=== PATIENT | female | born 1935 | race Caucasian/White ===

== ENCOUNTER → 2020-02-02 09:27 | Outpatient (BNVA) | payer MEDICARE, SELFPAY | PROVIDERS: PCP Hospitalist; Referring Provider Hospitalist; Visit Provider Surgery Vascular Surgery | DX: I83.11 Varicose veins of right lower extremity with inflammation (principal); I83.12 Varicose veins of left lower extremity with inflammation | CPT/HCPCS: 99213 ==

== ENCOUNTER 2020-03-21 13:35 | Outpatient (REF) | payer MEDICARE, SELFPAY | END 2020-03-21 13:36 | disposition home or self-care (01) | LOC: HO.HMGCLDS 13:35 | PROVIDERS: Visit Provider Internal Medicine | DX: Z20.828 Contact with and (suspected) exposure to other viral communicable diseases (principal) | CPT/HCPCS: C9803; U0003 ==

== ENCOUNTER 2020-04-19 10:14 | Outpatient (REF) | payer MEDICARE, SELFPAY ==
[2020-04-19 12:02] LABS: Hematocrit 42.9 % (37-47); Hemoglobin 14.1 g/dl (12.0-16.0); Mean Corpuscular HGB Conc 32.9 g/dl (31.0-35.0); Mean Corpuscular Hemoglobin 31.1 pg (27.0-33.0); Mean Corpuscular Volume 94.5 fL (80-98); Mean Platelet Volume 10.6 fL (9.4-12.3); Platelet Count 182 X10*3/uL (160-400); Red Blood Count 4.54 X10*6/uL (4.20-5.50); Red Cell Distribution Width 13.9 % (11.0-16.0); White Blood Count 5.9 X10*3/uL (4.8-10.8)
[2020-04-19 12:31] LABS: Anion Gap 15 (12-20); Blood Urea Nitrogen 21 mg/dL (9-16); Calcium 9.4 mg/dL (8.4-10.2); Carbon Dioxide 28 mmol/L (22-29); Chloride 102 mmol/L (96-108); Estimated Glomerular Filt Rate > 60; Glucose Random 87 mg/dL (60-115); Sodium 140 mmol/L (135-145)
== END 2020-04-19 10:15 | disposition home or self-care (01) ==
LOC: HO.LAB 10:14
PROVIDERS: PCP Hospitalist; Visit Provider Internal Medicine Cardiovascular Disease
DX: I50.30 Unspecified diastolic (congestive) heart failure (principal); I48.0 Paroxysmal atrial fibrillation
CPT/HCPCS: 36415; 80048; 85027; 93005; 99212

== ENCOUNTER 2020-10-21 10:32 | Outpatient (REF) | payer MEDICARE, SELFPAY ==
[2020-10-21 12:02] LABS: Hematocrit 40.2 % (37-47); Hemoglobin 13.1 g/dl (12.0-16.0); Mean Corpuscular HGB Conc 32.6 g/dl (31.0-35.0); Mean Corpuscular Hemoglobin 31.4 pg (27.0-33.0); Mean Corpuscular Volume 96.4 fL (80-98); Mean Platelet Volume 10.6 fL (9.4-12.3); Platelet Count 176 X10*3/uL (160-400); Red Blood Count 4.17 X10*6/uL (4.20-5.50); Red Cell Distribution Width 14.1 % (11.0-16.0); White Blood Count 4.8 X10*3/uL (4.8-10.8)
[2020-10-21 12:22] LABS: Anion Gap 10 (12-20); Blood Urea Nitrogen 24 mg/dL (9-16); Calcium 9.7 mg/dL (8.4-10.2); Carbon Dioxide 30 mmol/L (22-29); Chloride 104 mmol/L (96-108); Estimated Glomerular Filt Rate > 60; Glucose Random 66 mg/dL (60-115); Potassium 4.2 mmol/L (3.3-5.1); Sodium 140 mmol/L (135-145)
== END 2020-10-21 10:33 | disposition home or self-care (01) ==
LOC: HO.LAB 10:32
PROVIDERS: PCP Hospitalist; Referring Provider Hospitalist; Visit Provider Internal Medicine Cardiovascular Disease
DX: I48.0 Paroxysmal atrial fibrillation (principal); I50.30 Unspecified diastolic (congestive) heart failure
CPT/HCPCS: 36415; 80048; 85027; 93005; 99212

== ENCOUNTER → 2021-03-07 09:21 | Outpatient (REF) | payer MEDICARE, SELFPAY ==
--- NOTE | 2021-03-07 09:25 | CA_ITS ---
Transthoracic Echocardiogram Patient (Last, First, Middle): Mylene Zuniga A Gender: Female Date of : 1935 Age: 86 Procedure Date: 03/07/2021 Procedure Type: Transthoracic Echocardiogram Location: OP Height: 165.1 cm Weight: 61.24 kg BSA: 1.67 m2 Heart Rate: bpm BP: 130 / 78 mmHg Co Supervisor Grounds And Landscape: OCTAVIO/MIRELLA Referring MD: Raleigh Velazquez MD Media Librarian: Raleigh Velazquez MD Symptoms: I50.30 - Unspecified diastolic (congestive) heart failure Study Quality: Good ECG Rhythm: Sinus Conclusions: - 1. Normal LV systolic function with grade 2 diastolic dysfunction 2. Mild aortic and xkbz-qa-khuufxuy mitral regurgitation 3. Mildly elevated right ventricular systolic pressure 4. Moderately enlarged left atrium 5. No pericardial effusion Findings Left Ventricle Normal left ventricular size, thickness, and systolic function. The visually estimated ejection fraction is between 60-65%. Spectral Doppler is indicative of a pseudonormal filling pattern. E/E prime ratio is >15, consistent with elevated filling pressures. Evidence suggests grade II (moderate) diastolic dysfunction. There is mild septal asymmetric hypertrophy. Right Ventricle Mildly increased right ventricular cavity size. There is normal right ventricular systolic function. Atria The left atrium is moderately dilated. There is no evidence of interatrial shunt. The right atrium is likely dilated. Aortic Valve There is mild thickening of the aortic valve. There is no aortic valve stenosis. There is mild aortic valve regurgitation. Mitral Valve There is mild anterior and posterior mitral leaflet thickening. There is mild mitral annular calcification. There is mild to moderate mitral valve regurgitation. There is no mitral valve stenosis. Pulmonic Valve The pulmonic valve was not well visualized. Tricuspid Valve Likely normal tricuspid valve structure and function. There is mild tricuspid valve regurgitation. Mildly elevated right atrial pressure. Mild pulmonary hypertension is present. Great Vessels All visible segments of the aorta are normal in size. The pulmonary artery was not well visualized. Venous The inferior vena cava is mildly dilated and collapses less than 50% with inspiration. Pericardium/Pleural There is no evidence of pericardial effusion. Prior Study Comparison No significant change compared to prior study dated: 02/09/2018. Measurements 2D Linear Measurements IVSd: 1.28 0.6-0.9/0.6-1.0 cm LVIDd: 4.33 3.9-5.3/4.2-5.9 cm LVIDd Index: 2.59 2.4-3.2/2.2-3.1 cm/m2 LVIDs: 3.03 2.0-3.6 cm LVPWd: 0.71 0.7-1.1 cm Ao Root: 3.30 2.1-3.5 cm LA Diam: 3.60 2.7-3.8/3.0-4.0 cm LAIDs Index: 2.16 1.5-2.3 cm/m2 LV Mass: 178.35 67-162/88-224 g LV Mass Index: 106.80 43-95/49-115 g/m2 LVOT Diam: 2.10 3.0+(-)1.3 cm 2D Systolic Function EF 4C: 59.80 >55% EF 2C: 70.20 >55% EF BiP: 66.90 >55% Mitral Valve MV Pk E: 0.88 MV PK A: 0.61 MV Decel Time: 232.00 E/A: 1.40 E'Lateral: 7.83 E'Medial: 7.72 E/E' Med: 11.40 E/E' Lat: 11.20 PHT: 68.00 MVA PHT: 3.24 Decel [place]: 3.78 Aortic Valve AoV Pk Clemente: 1.14 AoV Mn Clemente: 0.81 AoV VTI: 0.32 AoV Pk Grad: 5.00 Aov Mn Grad: 3.00 DARRON Cont.VTI: 2.95 AI Pk Clement[place]: 4.74 AI [place]: 1.90 LVOT LVOT Pk Clement[place]: 0.92 LVOT Mn Clemente: 0.64 LVOT VTI: 0.27 LVOT Pk Grad: 3.00 LVOT Mn Grad: 2.00 LVOT Diam: 2.10 LVOT Area: 3.46 Diastolic Function MV Pk E: 0.88 MV Pk A: 0.61 E/A: 1.40 E'Medial: 7.72 E/E' Med: 11.40 E' Laterial: 7.83 E/E' Lat: 11.20 Right Ventricle TAPSE (mm): 2.64 TVS' Clemente: 10.30 Tricuspid Valve TR Pk Clement[place]: 2.96 TR Pk Grad: 35.00 RA Press: 8.00 RVSP: 43.00 Great Vessels Aorta Ao Root-2D: 3.30 2.0-3.7 cm Ao Asc: 3.40 2.1-3.4 cm Ao Arch: 3.70 Updated in Other Vendor System with Status of Final Raleigh Velazquez MD electronically signed on 03/07/2021 5:06:34 PM with status of Final
== END ==
LOC: HO.CARD 09:21
PROVIDERS: PCP Hospitalist; Visit Provider Internal Medicine Cardiovascular Disease
DX: I50.30 Unspecified diastolic (congestive) heart failure (principal)
CPT/HCPCS: 93306

== ENCOUNTER → 2021-05-14 10:21 | Outpatient (BNVA) | payer MEDICARE, MEDICAID, SELFPAY | PROVIDERS: PCP Hospitalist; Referring Provider Hospitalist; Visit Provider Internal Medicine Cardiovascular Disease | DX: I50.30 Unspecified diastolic (congestive) heart failure (principal); I48.0 Paroxysmal atrial fibrillation; R00.1 Bradycardia, unspecified | CPT/HCPCS: 93005; 99212 ==

== ENCOUNTER 2021-11-20 10:00 | Outpatient (REF) | payer MEDICARE, MEDICAID, SELFPAY ==
[2021-11-20 11:32] LABS: Hematocrit 41.4 % (37.0-47.0); Hemoglobin 13.5 g/dl (12.0-16.0); Mean Corpuscular HGB Conc 32.6 g/dl (31.0-35.0); Mean Corpuscular Hemoglobin 30.2 pg (27.0-33.0); Mean Corpuscular Volume 92.6 fL (80.0-98.0); Platelet Count 204 X10*3/uL (160-400); Red Blood Count 4.47 X10*6/uL (4.20-5.50); Red Cell Distribution Width 13.6 % (11.0-16.0); White Blood Count 5.1 X10*3/uL (4.8-10.8)
[2021-11-20 11:57] LABS: Anion Gap 13 (12-20); Blood Urea Nitrogen 23 mg/dL (9-16); Calcium 9.3 mg/dL (8.4-10.2); Carbon Dioxide 28 mmol/L (22-29); Chloride 104 mmol/L (96-108); Estimated Glomerular Filt Rate > 60; Glucose Random 67 mg/dL (60-115); Potassium 4.6 mmol/L (3.3-5.1); Sodium 140 mmol/L (135-145)
[2021-11-20 12:00] LABS: B Type Natriuretic Peptide 208 pg/mL (<100)
== END 2021-11-20 10:01 | disposition home or self-care (01) ==
LOC: HO.LAB 10:00
PROVIDERS: PCP Physician Assistant; Visit Provider Internal Medicine Cardiovascular Disease
DX: I48.0 Paroxysmal atrial fibrillation (principal); I50.30 Unspecified diastolic (congestive) heart failure
CPT/HCPCS: 36415; 80048; 83880; 85027; 93005; 99212

== ENCOUNTER → 2022-05-07 12:46 | Outpatient (REF) | payer MEDICARE, MEDICAID, SELFPAY ==
--- NOTE | 2022-05-07 12:49 | CA_ITS ---
Transthoracic Echocardiogram Patient (Last, First, Middle): Mylene Zuniga A Gender: Female Date of : 1935 Age: 87 Procedure Date: 05/07/2022 Procedure Type: Transthoracic Echocardiogram Location: OP Height: 165.1 cm Weight: 63.5 kg BSA: 1.70 m2 Heart Rate: bpm BP: 120 / 70 mmHg Technology Education Teacher: MIRELLA Referring MD: Raleigh Velazquez MD Symptoms: I50.30 - Unspecified diastolic (congestive) heart failure Study Quality: Adequate ECG Rhythm: Sinus Conclusions: - The left ventricular systolic function is normal. The calculated ejection fraction is 66% by biplane method. - The left atrium is severely dilated. - Trace to mild aortic regurgitation. - There is mild mitral valve regurgitation. - There is mild tricuspid valve regurgitation. - The inferior vena cava is dilated and collapses greater than 50% with inspiration. Findings Left Ventricle Normal left ventricular cavity size. There is normal left ventricular wall thickness. The left ventricular systolic function is normal. The calculated ejection fraction is 66% by biplane method. There is no evidence of regional wall motion abnormalities. E/E prime ratio is between 8 and 15 consistent with indeterminate filling pressures. Evidence suggests grade II (moderate) diastolic dysfunction. There is mild septal asymmetric hypertrophy. LV peak GLS -21.5%. Right Ventricle Normal right ventricular cavity size and systolic function. Atria The left atrium is severely dilated. The right atrium is normal in size. Aortic Valve There is a normal trileaflet aortic valve. There is mild calcification of the aortic valve. There is no aortic valve stenosis. Trace to mild aortic regurgitation. Mitral Valve The mitral valve appears normal. There is mild mitral valve regurgitation. There is no mitral valve stenosis. Pulmonic Valve The pulmonic valve is likely normal. Tricuspid Valve Normal tricuspid valve structure. There is mild tricuspid valve regurgitation. There is no evidence of pulmonary hypertension. Great Vessels The asc aorta and aortic arch are normal in size. Venous The inferior vena cava is dilated and collapses greater than 50% with inspiration. Pericardium/Pleural There is no evidence of pericardial effusion. Prior Study Comparison Changes noted compared to prior study dated: 03/07/2021. Increase in atrial size. Measurements 2D Linear Measurements IVSd: 1.23 0.6-0.9/0.6-1.0 cm LVIDd: 4.34 3.9-5.3/4.2-5.9 cm LVIDd Index: 2.55 2.4-3.2/2.2-3.1 cm/m2 LVIDs: 2.34 2.0-3.6 cm LVPWd: 0.75 0.7-1.1 cm LA Diam: 3.80 2.7-3.8/3.0-4.0 cm LAIDs Index: 2.24 1.5-2.3 cm/m2 LV Mass: 177.39 67-162/88-224 g LV Mass Index: 104.35 43-95/49-115 g/m2 LVOT Diam: 2.10 3.0+(-)1.3 cm 2D Systolic Function EF 4C: 67.70 >55% EF 2C: 62.90 >55% EF BiP: 66.40 >55% Mitral Valve MV Pk E: 0.84 MV PK A: 0.65 MV Decel Time: 239.00 E/A: 1.30 E'Lateral: 9.46 E'Medial: 6.31 E/E' Med: 13.20 E/E' Lat: 8.80 PHT: 70.00 MVA PHT: 3.14 Decel [place]: 3.49 Aortic Valve AoV Pk Clemente: 1.43 AoV Mn Clemente: 0.99 AoV VTI: 0.39 AoV Pk Grad: 8.00 Aov Mn Grad: 4.00 DARRON Cont.VTI: 2.49 AI Pk [place]: 4.51 AI [place]: 2.25 LVOT LVOT Pk Clemente: 1.07 LVOT Mn Clemente: 0.65 LVOT VTI: 0.28 LVOT Pk Grad: 5.00 LVOT Mn Grad: 2.00 LVOT Diam: 2.10 LVOT Area: 3.46 Diastolic Function MV Pk E: 0.84 MV Pk A: 0.65 E/A: 1.30 E'Medial: 6.31 E/E' Med: 13.20 E' Laterial: 9.46 E/E' Lat: 8.80 Right Ventricle TAPSE (mm): 32.50 TVS' Clemente: 12.50 Tricuspid Valve TR Pk [place]: 2.58 TR Pk Grad: 27.00 RA Press: 8.00 RVSP: 35.00 Great Vessels Aorta Sinus of Valsalva: 3.23 2.0-3.[address] [place]: 2.49 1.7-3.4 cm Ao Asc: 3.50 2.1-3.4 cm Ao Arch: 2.70 Updated in Other Vendor System with Status of Final Tor Blackburn MD electronically signed on 05/09/2022 11:55:46 AM with status of Final
== END ==
LOC: HO.CARD 12:46
PROVIDERS: PCP Physician Assistant; Visit Provider Internal Medicine Cardiovascular Disease
DX: I50.30 Unspecified diastolic (congestive) heart failure (principal)
CPT/HCPCS: 93306; 93356

== ENCOUNTER → 2022-05-25 10:38 | Outpatient (BNVA) | payer MEDICARE, MEDICAID, SELFPAY | PROVIDERS: PCP Physician Assistant; Referring Provider Physician Assistant; Visit Provider Internal Medicine Cardiovascular Disease | DX: I50.30 Unspecified diastolic (congestive) heart failure (principal); I48.0 Paroxysmal atrial fibrillation | CPT/HCPCS: 93005; 99212 ==

== ENCOUNTER 2022-11-16 10:29 | Outpatient (REF) | payer MEDICARE, MEDICAID, SELFPAY ==
[2022-11-16 12:49] LABS: Hematocrit 40.5 % (37.0-47.0); Mean Corpuscular HGB Conc 32.1 g/dl (31.0-35.0); Mean Corpuscular Hemoglobin 31.2 pg (27.0-33.0); Mean Corpuscular Volume 97.1 fL (80.0-98.0); Mean Platelet Volume 10.6 fL (9.4-12.3); Platelet Count 149 X10*3/uL (160-400); Red Blood Count 4.17 X10*6/uL (4.20-5.50); Red Cell Distribution Width 13.5 % (11.0-16.0); White Blood Count 5.4 X10*3/uL (4.8-10.8)
[2022-11-16 13:30] LABS: Anion Gap 15 (12-20); Blood Urea Nitrogen 19 mg/dL (9-16); Calcium 9.4 mg/dL (8.4-10.2); Carbon Dioxide 26 mmol/L (22-29); Chloride 102 mmol/L (96-108); Estimated Glomerular Filt Rate > 60; Glucose Random 88 mg/dL (60-115); Potassium 4.6 mmol/L (3.3-5.1); Sodium 138 mmol/L (135-145)
== END 2022-11-16 10:30 | disposition home or self-care (01) ==
LOC: HO.LAB 10:29
PROVIDERS: Visit Provider Internal Medicine Cardiovascular Disease
DX: I48.0 Paroxysmal atrial fibrillation (principal); I50.30 Unspecified diastolic (congestive) heart failure
CPT/HCPCS: 36415; 80048; 85027; 93005; 99212

== ENCOUNTER 2022-11-16 10:29 | Outpatient (AMB) | payer MEDICARE, MEDICAID, SELFPAY ==
--- NOTE | 2022-11-16 10:33 | A.OFFVIS_ITS ---
Intake Vital Signs 11/16/22 10:34 Height 5 ft 5 in Weight 143 lb 4.807 oz BMI 23.8 BP 110/68 Blood Pressure Location Lt brachial Position Sitting Pulse 55 Intake Visit Reasons: 6 month f/u Intake Note: 6 month follow-up with ekg hearts ok has had ear pain 10 days Online Advertising Analyst Required: No Molecular Biology Professor: Molecular Biology Professor Present Accompanied by: Son Allergies adhesive [ADHESIVE] Allergy (Intermediate, Verified 05/25/22 10:46) RASH latex [LATEX] Allergy (Intermediate, Verified 05/25/22 10:46) RASH/ITCH Sulfa (Sulfonamide Antibiotics) [SULFA (SULFONAMIDE ANTIBIOTICS)] Allergy (Mild, Verified 05/25/22 10:46) INCREASED WBC AND NAUSEA amiodarone [AMIODARONE] Allergy (Unknown, Verified 05/25/22 10:46) NODULES IN LUNGS, Lung toxicity latex Allergy (Unknown, Uncoded 05/25/22 10:46) Rash Latex Gloves Allergy (Unknown, Uncoded 05/25/22 10:46) Rash Sulfacet-R Allergy (Unknown, Uncoded 05/25/22 10:46) elevates white blood cell count and nausea Medication List - Last Reconciled 11/16/22 by Raleigh Velazquez MD atorvastatin 10 mg PO DAILY benzonatate 200 mg PO TID PRN dorzolamide-timolol 22.3-6.8 mg/mL 1 drp ophthalmic (eye) ONCE flecainide 100 mg PO Q12H furosemide 20 mg PO ONCE PRN latanoprost 0.005% 1 drp ophthalmic (eye) BEDTIME metoprolol succinate ER 25 mg PO DAILY netarsudil-latanoprost 0.02-0.005 % 1 drp ophthalmic (eye) DAILY rivaroxaban (Xarelto) 20 mg PO DAILY timolol maleate 0.5% 1 drp ophthalmic (eye) BID HPI HPI Comments History of Present Illness Details Mylene comes for follow-up. Accompanied by her son. She has had no recurrent atrial fibrillation episodes. No prolonged irregular heartbeat or palpitations. Denies any lightheadedness, syncope. No bleeding issues or neur ologic events. No worsening heart failure symptoms. Currently not using any loop diuretics. Denies any orthopnea, PND. She has not had any blood work recently. Complains of left ear pain, not better after oral antibiotic use. PFSH Medical History (HFpEF) heart failure with preserved ejection fraction Atrial fibrillation Congestive heart failure (CHF) HTN (hypertension) Hypercholesteremia Paroxysmal atrial fibrillation Varicose veins of left lower extremity with inflammation Varicose veins of right lower extremity with inflammation Surgical History History of nasal surgery Hx of cataract extraction Hx of knee surgery Family History Father Family history of sudden cardiac in father Mother Family history of sudden cardiac in father Family history of sudden cardiac in mother Son No problems noted. Social History Housing: House Patient Tobacco Use Status: Former Tobacco user e-Cigarette/Vaping Use: Never Used Current occupational status: retired Cognitive needs: No Hearing needs: No Vision needs: No Review of Systems Const Denies chills, Denies fatigue, Denies fever(s), Denies frequent falls, Denies weakness, Denies weight gain and Denies weight loss ENT Denies dizziness Card Denies chest pain, Denies leg edema, Denies lightheadedness, Denies palpitations, Denies dyspnea, Denies dyspnea on exertion, Denies orthopnea and Denies other (loss of consciousness) Resp Denies cough, Denies dyspnea and Denies dyspnea on exertion GI Denies hematochezia and Denies change in stool character Musc Denies abnormal gait, Denies muscle weakness, Denies numbness, Denies radiating pain into limb and Denies tingling Neuro Denies abnormal gait, Denies dizziness, Denies frequent falls, Denies numbness, Denies tingling and Denies weakness Endo Denies fatigue and Denies palpitations Physical Exam Vital Signs: Last Vital Signs Pulse 55 11/16/22 10:34 BP 110/68 11/16/22 10:34 BMI result Body Mass Index 23.8 Const General: cooperative, comfortable, no acute distress, alert and awake Nutritional Appearance: thin Orientation/consciousness: patient oriented x3 Limitations: no limitations Neck Neck: Yes trachea midline, Yes supple and Yes no JVD Resp Effort & Inspection: normal respiratory effort Auscultation: clear to auscultation bilaterally Cardio Jugular venous distension: no JVD Palpation: normal PMI Rate: regular rate Rhythm: regular rhythm Heart sounds: S1 normal heart sound present and S2 normal heart sound present GI Auscultation: normal bowel sounds Skin General skin exam: no rashes or lesions noted and ecchymosis Neuro General: patient oriented x3 and no focal motor deficits Extrem General: Yes no clubbing, cyanosis or edema, Yes venous stasis dermatitis and Yes other (Bilateral varicose veins, right greater than left) Psych Appearance: grossly normal Office Procedures EKG Details: EKG shows sinus bradycardia with sinus arrhythmia with first-degree AV block 60192-[id number], Complete Assessment & Plan Assessment & Plan (1) Paroxysmal atrial fibrillation: Code(s): I48.0 - Paroxysmal atrial fibrillation Plan: Highly symptomatic paroxysmal atrial fibrillation has done well with rhythm control approach will continue pursue rhythm control approach. Importance of blood work routinely at least every 6 months was discussed. Continue current therapy flecainide which she is tolerating well. Continue concomitant low-dose metoprolol therapy to reduce symptomatic rapid atrial flutter. Continue full oral anticoagulation, currently on Xarelto. Semi annual renal function test and annual CBC should be checked. (2) (HFpEF) heart failure with preserved ejection fraction: Code(s): I50.30 - Unspecified diastolic (congestive) heart failure Plan: Heart failure preserved ejection fraction, clinically euvolemic and well compensated. She has done well with rhythm control approach. Currently not using Lasix on a regular basis. Advised to monitor for signs and symptoms of heart failure and call me. Continue rhythm control approach. Advised low-salt diet. Advised to maintain activity level as tolerated. Will follow up in the clinic in 6 months time, sooner p.r.n.. Thank you for allowing me to partake in her care Orders: Orders Basic Metabolic Panel Today I48.0 - Paroxysmal atrial fibrillation Complete Blood Count no Diff Today I48.0 - Paroxysmal atrial fibrillation Coding Level of Care Code Est Pt Level 4 (60808) Diagnoses Paroxysmal atrial fibrillation I48.0 (HFpEF) heart failure with preserved ejection fraction I50.30 CPT Codes EKG - CPT: 47025-Cfilveetnmbxrrkid, Complete ([id number])
[2022-11-16 10:34] VITALS: BP 110/68; PULSE 55; BMI 23.8
== END 2022-11-16 10:52 | disposition home or self-care (01) ==
PROVIDERS: Visit Provider Internal Medicine Cardiovascular Disease
DX: I48.0 Paroxysmal atrial fibrillation (principal); I50.30 Unspecified diastolic (congestive) heart failure
CPT/HCPCS: 93010; 99214

== ENCOUNTER 2022-11-20 09:49 | Outpatient (REF) | payer MEDICARE, MEDICAID, SELFPAY ==
--- NOTE | ~2022-11-20 | US_ITS ---
EXAMINATION: US SOFT TISSUE NECK CLINICAL INFORMATION: Left-sided neck swelling, recent history of left ear pain. Localized enlarged lymph nodes. COMPARISON: None available. TECHNIQUE: Ultrasound of the neck soft tissues is performed with high- frequency al-scale imaging and color Doppler. Targeted ultrasound images were obtained by the residential construction instructor of the area of concern as indicated by the patient in the left cervical region. Radiologist was not in attendance. Images were later provided for interpretation. FINDINGS: No bulky left cervical adenopathy or fluid collection identified. Incidental note on limited views of the right thyroid lobe of a 1.3 x 0.8 x 1.2 cm nodule which is mixed solid/cystic, isoechoic, wider than tall, irregular margins, and punctate foci characteristic of a TI-RADS 5 nodule. This nodule meets criteria for biopsy. Dedicated thyroid ultrasound with fine-needle aspiration to follow recommended. US/US soft tiss head and/or neck IMPRESSION: 1. No bulky left cervical adenopathy or fluid collection identified. If clinically indicated, further evaluation of the neck soft tissues and nodes may be performed with CT soft tissue neck with intravenous contrast. 2. Incidental note on limited views of the right thyroid lobe of a 1.3 x 0.8 x 1.2 cm nodule which is mixed solid/cystic, isoechoic, wider than tall, irregular margins, and punctate foci characteristic of a TI-RADS 5 nodule. This nodule meets criteria for biopsy. Dedicated thyroid ultrasound with fine-needle aspiration to follow recommended. This study was presented today 11/24/2022 at 8:45 AM for interpretation. PSA staff will provide results to referring provider at this time.
== END 2022-11-20 09:50 | disposition home or self-care (01) ==
LOC: HO.HMGCX 09:49
PROVIDERS: PCP Physician Assistant; Visit Provider Nurse Practitioner Family
DX: R59.0 Localized enlarged lymph nodes (principal)
CPT/HCPCS: 76536

== ENCOUNTER 2023-05-24 10:25 | Outpatient (AMB) | payer MEDICARE, MEDICAID, SELFPAY ==
[2023-05-24 10:31] VITALS: BP 140/80; PULSE 52; BMI 23.7
--- NOTE | 2023-05-24 10:31 | MHC.OFFVIS ---
Intake Vital Signs 05/24/23 10:31 Height 5 ft 5 in Weight 142 lb 6.698 oz BMI 23.7 BP 140/80 H Blood Pressure Location Lt brachial Position Sitting Pulse 52 Intake Visit Reasons: 6 mth f/up Intake Note: 6 mnth f/up/pt its feeling fine. Electric Melt Operator Required: No Accompanied by: Self / Same As Patient Allergies adhesive [ADHESIVE] Allergy (Intermediate, Verified 05/25/22 10:46) RASH latex [LATEX] Allergy (Intermediate, Verified 05/25/22 10:46) RASH/ITCH Sulfa (Sulfonamide Antibiotics) [SULFA (SULFONAMIDE ANTIBIOTICS)] Allergy (Mild, Verified 05/25/22 10:46) INCREASED WBC AND NAUSEA amiodarone [AMIODARONE] Allergy (Unknown, Verified 05/25/22 10:46) NODULES IN LUNGS, Lung toxicity latex Allergy (Unknown, Uncoded 05/25/22 10:46) Rash Latex Gloves Allergy (Unknown, Uncoded 05/25/22 10:46) Rash Sulfacet-R Allergy (Unknown, Uncoded 05/25/22 10:46) elevates white blood cell count and nausea Medication List - Last Reconciled 05/24/23 by Raleigh Velazquez MD atorvastatin 10 mg PO DAILY benzonatate 200 mg PO TID PRN dorzolamide-timolol 22.3-6.8 mg/mL 1 drp ophthalmic (eye) ONCE flecainide 100 mg PO Q12H furosemide 20 mg PO ONCE PRN latanoprost 0.005% 1 drp ophthalmic (eye) BEDTIME metoprolol succinate ER 25 mg PO DAILY netarsudil-latanoprost 0.02-0.005 % 1 drp ophthalmic (eye) DAILY rivaroxaban (Xarelto) 20 mg PO DAILY timolol maleate 0.5% 1 drp ophthalmic (eye) BID HPI HPI Comments History of Present Illness Details Mylene comes for follow-up. She has been doing well from heart perspective. She can not walk long distances because of knee issues. Denies any prolonged palpitation irregular heartbeat. Denies any heart failure symptoms with no worsening shortness of breath, orthopnea, PND. Denies any lightheadedness, syncope. Denies any bleeding issues or neurologic events. Takes all her medications regularly. She is scheduled to undergo glaucoma surgery in near future [facility] Medical History (HFpEF) heart failure with preserved ejection fraction HTN (hypertension) Paroxysmal atrial fibrillation Varicose veins of left lower extremity with inflammation Varicose veins of right lower extremity with inflammation Congestive heart failure (CHF) Atrial fibrillation Hypercholesteremia Surgical History Hx of cataract extraction History of nasal surgery Hx of knee surgery Family History Father Family history of sudden cardiac in father Mother Family history of sudden cardiac in father Family history of sudden cardiac in mother Son No problems noted. Social History Housing: House Patient Tobacco Use Status: Former Tobacco user e-Cigarette/Vaping Use: Never Used Current occupational status: retired Cognitive needs: No Hearing needs: No Vision needs: No Review of Systems Const Reports chills, Reports fatigue, Reports fever(s), Reports frequent falls, Reports weakness, Reports weight gain and Reports weight loss ENT Reports dizziness Card Reports chest pain, Reports leg edema, Reports lightheadedness, Reports palpitations, Reports dyspnea and Reports dyspnea on exertion Resp Reports cough, Reports dyspnea and Reports dyspnea on exertion GI Reports hematochezia Musc Reports abnormal gait, Reports muscle weakness, Reports numbness, Reports radiating pain into limb and Reports tingling Neuro Reports abnormal gait, Reports dizziness, Reports frequent falls, Reports numbness, Reports tingling and Reports weakness Endo Reports fatigue and Reports palpitations Physical Exam Vital Signs: Last Vital Signs Pulse 52 05/24/23 10:31 BP 140/80 H 05/24/23 10:31 BMI result Body Mass Index 23.7 Const General: cooperative, comfortable, no acute distress, alert and awake Nutritional Appearance: thin Orientation/consciousness: patient oriented x3 Limitations: no limitations Neck Neck: Yes trachea midline, Yes supple and Yes no JVD Resp Effort & Inspection: normal respiratory effort Auscultation: clear to auscultation bilaterally Cardio Jugular venous distension: no JVD Palpation: normal PMI Rate: regular rate Rhythm: regular rhythm Heart sounds: S1 normal heart sound present and S2 normal heart sound present GI Auscultation: normal bowel sounds Skin General skin exam: no rashes or lesions noted and ecchymosis Neuro General: patient oriented x3 and no focal motor deficits Extrem General: Yes no clubbing, cyanosis or edema, Yes venous stasis dermatitis and Yes other (Bilateral varicose veins, right greater than left) Psych Appearance: grossly normal Office Procedures EKG Details: EKG shows sinus bradycardia with first-degree AV block without any significant other abnormality [id number], Complete Assessment & Plan Assessment & Plan (1) Paroxysmal atrial fibrillation: Code(s): I48.0 - Paroxysmal atrial fibrillation Plan: Paroxysmal atrial fibrillation, highly symptomatic with cause of congestive heart failure. Has done well with rhythm control approach with flecainide therapy. Has tolerated flecainide therapy. Continue concomitant low-dose metoprolol therapy which is required. Continue full oral anticoagulation, currently on Xarelto 20 mg daily. Semi annual renal function test should be pursued. (2) (HFpEF) heart failure with preserved ejection fraction: Code(s): I50.30 - Unspecified diastolic (congestive) heart failure Plan: Heart failure preserved ejection fraction, clinically euvolemic and well compensated especially with good rhythm control approach. Continue to pursue rhythm control approach. Continue low-dose diuretic therapy as needed. Daily weight monitoring avoidance of salt loading was discussed. Advised to call me with worsening symptoms. (3) Sinus bradycardia: Code(s): R00.1 - Bradycardia, unspecified Plan: Sinus bradycardia which is asymptomatic. Most likely suggestive of sinoatrial node dysfunction exacerbated by metoprolol therapy. Although metoprolol therapy is required. She has no symptoms related to it and does not require any pacing therapy at this point in time. (4) Preoperative cardiovascular examination: Code(s): Z01.810 - Encounter for preprocedural cardiovascular examination Plan: Preoperative cardiovascular risk stratification prior to glaucoma surgery. This is considered low risk surgery. No further cardiac workup is indicated at this point time. Patient can hold her Xarelto for 2 days prior to the procedure if required with the associated risk for thrombosis that can be expected with stopping her oral anticoagulation therapy. Will follow up in the clinic in 6 months time, sooner p.r.n.. Thank you for allowing me to partake in her care Orders: Orders Basic Metabolic Panel Today I48.0 - Paroxysmal atrial fibrillation Coding Level of Care Code Est Pt Level 4 (31886) Diagnoses Paroxysmal atrial fibrillation I48.0 (HFpEF) heart failure with preserved ejection fraction I50.30 Sinus bradycardia R00.1 Preoperative cardiovascular examination Z01.810 CPT Codes EKG - CPT: 68417-Hnodohnblceoqryns, Complete ([id number])
== END 2023-05-24 10:58 | disposition home or self-care (01) ==
PROVIDERS: PCP Physician Assistant; Visit Provider Internal Medicine Cardiovascular Disease
DX: I48.0 Paroxysmal atrial fibrillation (principal); I50.30 Unspecified diastolic (congestive) heart failure; R00.1 Bradycardia, unspecified; Z01.810 Encounter for preprocedural cardiovascular examination
CPT/HCPCS: 93010; 99214

== ENCOUNTER 2023-05-24 10:25 | Outpatient (REF) | payer MEDICARE, MEDICAID, SELFPAY ==
[2023-05-24 12:26] LABS: Anion Gap 13 (12-20); Blood Urea Nitrogen 19 mg/dL (9-16); Calcium 9.5 mg/dL (8.4-10.2); Carbon Dioxide 29 mmol/L (22-29); Chloride 102 mmol/L (96-108); Estimated Glomerular Filt Rate > 60; Glucose Random 84 mg/dL (60-115); Potassium 4.9 mmol/L (3.3-5.1); Sodium 139 mmol/L (135-145)
== END 2023-05-24 10:26 | disposition home or self-care (01) ==
LOC: HO.LAB 10:25
PROVIDERS: PCP Physician Assistant; Visit Provider Internal Medicine Cardiovascular Disease
DX: Z01.810 Encounter for preprocedural cardiovascular examination (principal); I48.0 Paroxysmal atrial fibrillation; I50.30 Unspecified diastolic (congestive) heart failure; R00.1 Bradycardia, unspecified
CPT/HCPCS: 36415; 80048; 93005; 99212

== ENCOUNTER 2023-11-23 10:56 | Outpatient (REF) | payer MEDICARE, MEDICAID, SELFPAY ==
[2023-11-23 12:48] LABS: Anion Gap 15 (12-20); Blood Urea Nitrogen 20 mg/dL (9-16); Carbon Dioxide 27 mmol/L (22-29); Chloride 104 mmol/L (96-108); Estimated Glomerular Filt Rate > 60; Glucose Random 79 mg/dL (60-115); Potassium 4.9 mmol/L (3.3-5.1); Sodium 141 mmol/L (135-145)
== END 2023-11-23 10:57 | disposition home or self-care (01) ==
LOC: HO.LAB 10:56
PROVIDERS: PCP Physician Assistant; Visit Provider Internal Medicine Cardiovascular Disease
DX: I48.0 Paroxysmal atrial fibrillation (principal); I50.30 Unspecified diastolic (congestive) heart failure
CPT/HCPCS: 36415; 80048; 93005; 99212

== ENCOUNTER 2023-11-23 10:56 | Outpatient (AMB) | payer MEDICARE, MEDICAID, SELFPAY ==
--- NOTE | 2023-11-23 11:09 | A.OFFVIS_ITS ---
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 Accompanied by: Son Allergies adhesive [ADHESIVE] Allergy (Intermediate, Verified 05/25/22 10:46) RASH latex [LATEX] Allergy (Intermediate, Verified 05/25/22 10:46) RASH/ITCH Sulfa (Sulfonamide Antibiotics) [SULFA (SULFONAMIDE ANTIBIOTICS)] Allergy (Mild, Verified 05/25/22 10:46) INCREASED WBC AND NAUSEA amiodarone [AMIODARONE] Allergy (Unknown, Verified 05/25/22 10:46) NODULES IN LUNGS, Lung toxicity latex Allergy (Unknown, Uncoded 05/25/22 10:46) Rash Latex Gloves Allergy (Unknown, Uncoded 05/25/22 10:46) Rash Sulfacet-R Allergy (Unknown, Uncoded 05/25/22 10:46) elevates white blood cell count and nausea Medication List - Last Reconciled 11/23/23 by Raleigh Velazquez MD atorvastatin 10 mg PO DAILY benzonatate 200 mg PO TID PRN flecainide 100 mg PO Q12H furosemide 20 mg PO ONCE PRN metoprolol succinate ER 25 mg PO DAILY netarsudil-latanoprost 0.02-0.005 % 1 drp ophthalmic (eye) DAILY rivaroxaban (Xarelto) 20 mg PO DAILY timolol maleate 0.5% 1 drp ophthalmic (eye) BID HPI Comments Details: Mylene comes for follow-up. She has been doing well from cardiac perspective. She has had no recurrent episodes of atrial fibrillation. With any prolonged palpitation irregular heartbeat. Denies any clear heart failure symptoms. Remains active for her age. Denies any orthopnea, PND, leg edema. Takes Lasix once every 3-4 weeks. No lightheadedness, syncope. No worsening shortness of breath or no exertional chest pain. 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 Social History Housing: House Patient Tobacco Use Status: Former Tobacco user e-Cigarette/Vaping Use: Never Used Current occupational status: retired Cognitive needs: No Hearing needs: No Vision needs: No Review of Systems Const Denies chills, Denies fatigue, Denies fever(s), Denies frequent falls, Denies weakness, Denies weight gain and Denies weight loss ENT Denies dizziness Card Denies chest pain, Denies leg edema, Denies lightheadedness, Denies palpitations, Denies dyspnea, Denies dyspnea on exertion, Denies orthopnea and Denies other (loss of consciousness) Resp Denies cough, Denies dyspnea and Denies dyspnea on exertion GI Denies hematochezia and Denies change in stool character Musc Denies abnormal gait, Denies muscle weakness, Denies numbness, Denies radiating pain into limb and Denies tingling Neuro Denies abnormal gait, Denies dizziness, Denies frequent falls, Denies numbness, Denies tingling and Denies weakness Endo Denies fatigue and Denies palpitations Physical Exam Vital Signs: Last Vital Signs Pulse 52 11/23/23 11:10 BP 120/80 11/23/23 11:10 BMI result Body Mass Index 23.5 Const General: cooperative, comfortable, no acute distress, alert and awake Nutritional Appearance: thin Orientation/consciousness: patient oriented x3 Limitations: no limitations Neck Neck: Yes trachea midline, Yes supple and Yes no JVD Resp Effort & Inspection: normal respiratory effort Auscultation: clear to auscultation bilaterally Cardio Jugular venous distension: no JVD Palpation: normal PMI Rate: regular rate Rhythm: regular rhythm Heart sounds: S1 normal heart sound present and S2 normal heart sound present GI Auscultation: normal bowel sounds Skin General skin exam: no rashes or lesions noted and ecchymosis Neuro General: patient oriented x3 and no focal motor deficits Extrem General: Yes no clubbing, cyanosis or edema, Yes venous stasis dermatitis and Yes other (Bilateral varicose veins, right greater than left) Psych Appearance: grossly normal Office Procedures EKG Details: EKG shows normal sinus rhythm with sinus arrhythmia with nonspecific ST T wave changes [id number], Complete Assessment & Plan Assessment & Plan (1) (HFpEF) heart failure with preserved ejection fraction: Code(s): I50.30 - Unspecified diastolic (congestive) heart failure Category: Medical Plan: Heart failure preserved ejection fraction, clinically euvolemic and well compensated requiring diuretic regimen very infrequently. Has done well with rhythm control approach will continue pursue rhythm control approach. Continue heart failure management as prescribed. Daily weight monitoring avoidance of salt loading. Additional diuretics as need be. Continue aggressive blood pressure control. Low-salt diet was discussed. Maintain activity level as tolerated. (2) Paroxysmal atrial fibrillation: Code(s): I48.0 - Paroxysmal atrial fibrillation Category: Medical Plan: Paroxysmal atrial fibrillation which has remained suppressed on antiarrhythmic drug therapy has done well with rhythm control approach. Continue the same. Continue flecainide therapy. Continue concomitant metoprolol therapy despite sinus bradycardia. No symptoms related to it. Tolerating oral anticoagulation with Xarelto. Continue the same. Semi annual renal function test and annual CBC should be pursued. I have encouraged her to continue to follow with her PCP at least on annual basis. Will follow up in the clinic in 6 months time, sooner p.r.n.. Thank you for allowing me to partake in her care Orders: Orders Basic Metabolic Panel Today I48.0 - Paroxysmal atrial fibrillation Coding Level of Care Code Est Pt Level 4 (32974) Diagnoses (HFpEF) heart failure with preserved ejection fraction I50.30 Paroxysmal atrial fibrillation I48.0 CPT Codes EKG - CPT: 24773-[id number], Complete ([id number])
[2023-11-23 11:10] VITALS: BP 120/80; PULSE 52; BMI 23.5
== END 2023-11-23 11:32 | disposition home or self-care (01) ==
PROVIDERS: PCP Physician Assistant; Visit Provider Internal Medicine Cardiovascular Disease
DX: I50.30 Unspecified diastolic (congestive) heart failure (principal); I48.0 Paroxysmal atrial fibrillation
CPT/HCPCS: 93010; 99214

== ENCOUNTER 2024-05-30 10:31 | Outpatient (AMB) | payer MEDICARE, MEDICAID, SELFPAY ==
--- NOTE | 2024-05-30 10:34 | MHC.OFFVIS ---
Vital Signs 05/30/24 10:35 Height 5 ft 5 in Weight 138 lb 14.259 oz BMI 23.1 BP 124/76 Blood Pressure Location Lt brachial Position Sitting Pulse 52 Intake Visit Reasons: 6 mth f/up Intake Note: 6 month follow-up with ekg feeling good Software Quality Assurance Engineer Required: No Allergies adhesive [ADHESIVE] Allergy (Intermediate, Verified 05/25/22 10:46) RASH latex [LATEX] Allergy (Intermediate, Verified 05/25/22 10:46) RASH/ITCH Sulfa (Sulfonamide Antibiotics) [SULFA (SULFONAMIDE ANTIBIOTICS)] Allergy (Mild, Verified 05/25/22 10:46) INCREASED WBC AND NAUSEA amiodarone [AMIODARONE] Allergy (Unknown, Verified 05/25/22 10:46) NODULES IN LUNGS, Lung toxicity latex Allergy (Unknown, Uncoded 05/25/22 10:46) Rash Latex Gloves Allergy (Unknown, Uncoded 05/25/22 10:46) Rash Sulfacet-R Allergy (Unknown, Uncoded 05/25/22 10:46) elevates white blood cell count and nausea Medication List - Last Reconciled 05/30/24 by Raleigh Velazquez MD atorvastatin 10 mg PO DAILY benzonatate 200 mg PO TID PRN flecainide 100 mg PO Q12H furosemide 20 mg PO ONCE PRN metoprolol succinate ER 25 mg PO DAILY netarsudil-latanoprost 0.02-0.005 % 1 drp ophthalmic (eye) DAILY rivaroxaban (Xarelto) 20 mg PO DAILY timolol maleate 0.5% 1 drp ophthalmic (eye) BID HPI Comments Details: Mylene comes for follow-up, accompanied by her son. She has been doing well from cardiac perspective. She says she feels extremely well and has done well on flecainide therapy. She has no symptoms of heart failure. Has not taken any diuretics for few months. Has not seen a primary care physician for 3 years. Denies any prolonged palpitation irregular heartbeat. No lightheadedness, syncope. No bleeding issues or neurologic events. 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 Social History Housing: House Patient Tobacco Use Status: Former Tobacco user e-Cigarette/Vaping Use: Never Used Current occupational status: retired Cognitive needs: No Hearing needs: No Vision needs: No Review of Systems Const Denies chills, Denies fatigue, Denies fever(s), Denies frequent falls, Denies weakness, Denies weight gain and Denies weight loss ENT Denies dizziness Card Denies chest pain, Denies leg edema, Denies lightheadedness, Denies palpitations, Denies dyspnea, Denies dyspnea on exertion, Denies orthopnea and Denies other (loss of consciousness) Resp Denies cough, Denies dyspnea and Denies dyspnea on exertion GI Denies hematochezia and Denies change in stool character Musc Denies abnormal gait, Denies muscle weakness, Denies numbness, Denies radiating pain into limb and Denies tingling Neuro Denies abnormal gait, Denies dizziness, Denies frequent falls, Denies numbness, Denies tingling and Denies weakness Endo Denies fatigue and Denies palpitations Physical Exam Vital Signs: Last Vital Signs Pulse 52 05/30/24 10:35 BP 124/76 05/30/24 10:35 BMI result Body Mass Index 23.1 Const General: cooperative, comfortable, no acute distress, alert and awake Nutritional Appearance: thin Orientation/consciousness: patient oriented x3 Limitations: no limitations Neck Neck: Yes trachea midline, Yes supple and Yes no JVD Resp Effort & Inspection: normal respiratory effort Auscultation: clear to auscultation bilaterally Cardio Jugular venous distension: no JVD Palpation: normal PMI Rate: regular rate Rhythm: regular rhythm Heart sounds: S1 normal heart sound present and S2 normal heart sound present GI Auscultation: normal bowel sounds Skin General skin exam: no rashes or lesions noted and ecchymosis Neuro General: patient oriented x3 and no focal motor deficits Extrem General: Yes no clubbing, cyanosis or edema, Yes venous stasis dermatitis and Yes other (Bilateral varicose veins, right greater than left) Psych Appearance: grossly normal Office Procedures EKG Details: EKG shows normal sinus rhythm with poor R-wave progression most likely lead placement with nonspecific ST changes [id number], Complete Assessment & Plan Assessment & Plan (1) (HFpEF) heart failure with preserved ejection fraction: Code(s): I50.30 - Unspecified diastolic (congestive) heart failure Category: Medical Plan: Heart failure preserved ejection fraction, clinically euvolemic and well compensated on current diuretic regimen which she takes only as needed and rhythm control approach. She has derived most benefit from rhythm control approach. Continue the same. Continue Lasix as need be. Daily weight monitoring avoidance salt loading was discussed. Continue aggressive blood pressure control which is currently well optimized. Encouraged to follow with PCP. (2) Paroxysmal atrial fibrillation: Code(s): I48.0 - Paroxysmal atrial fibrillation Category: Medical Plan: Paroxysmal atrial fibrillation has done well with rhythm control approach well with flecainide therapy. Has tolerated flecainide therapy well. 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 Continue full oral anticoagulation, currently on Xarelto 20 mg daily. Semi annual renal function test should be pursued. Will follow up in the clinic in 6 months time, sooner p.r.n.. Thank you for allowing me to partake in her care Coding Level of Care Code Est Pt Level 4 (78710) Complex EM visit Add On G2211 Diagnoses (HFpEF) heart failure with preserved ejection fraction I50.30 Paroxysmal atrial fibrillation I48.0 CPT Codes EKG - CPT: 01105-[id number], Complete ([id number])
[2024-05-30 10:35] VITALS: BP 124/76; PULSE 52; BMI 23.1
--- OUTSIDE RECORDS SUMMARY | 2024-05-30 11:33 | XMS_ITS | Data Portability ---
Author Organization JAKE Champion s, [address] Address [address] [place] [address] Assessment No assessment recorded. Plan of Treatment Reminders Order Date Submit Date Provider Last Modified By Organization Details Last Modified Time Details Appointments None recorded. Lab None recorded. Referral None recorded. Procedures None recorded. Surgeries None recorded. Imaging None recorded. Medication Orders Augmentin 875 mg-125 mg tablet 2022 023 [facility]199, [address] [place], [place], [phone], 3 11:24:32 Allergy Relief (fluticason e) 50 mcg/actuati on nasal spray,suspe nsion 2022 023 [facility] #20767, [address] [place], [place], [phone], 3 11:24:32 prednisone 20 mg tablet 2022 023 [facility]93358, [address] [place], [place], [phone], 3 11:24:33 Patient TargetsNo targets recorded. Patient Instructions Encounter Date Encounter Id Patient Instructions Last Modified By Organization Details Last Modified Time 11/07/2022 [id number] earache: care instructions [email or web address] Not available 11/07/2022 11:24:25 ear infection (otitis media): care instructions Not available 11/07/2022 11:24:25 An ear infection may start with a cold and affect the middle ear (otitis media). It can hurt a lot. Most ear infections clear up on their own in a couple of days and do not need antibiotics. Also, antibiotics do not work against viruses, which may be the cause of your infection. Regular doses of pain relievers are the best way to reduce your fever and help you feel better. How can you care for yourself at home? Take pain medicines exactly as directed. If the doctor gave you a prescription medicine for pain, take it as prescribed. If you are not taking a prescription pain medicine, take an yued-thc-akxzevi medicine, such as acetaminophen (Tylenol), ibuprofen (Advil, Motrin), or naproxen (Aleve). Read and follow all instructions on the label. Do not take two or more pain medicines at the same time unless the doctor told you to. Many pain medicines have acetaminophen, which is Tylenol. Too much acetaminophen (Tylenol) can be harmful. Plan to take a full dose of pain reliever before bedtime. Getting enough sleep will help you get better. Try a warm, moist face cloth on the ear. It may help relieve pain. If your doctor prescribed antibiotics, take them as directed. Do not stop taking them just because you feel better. You need to take the full course of antibiotics. Not available 11/07/2022 11:24:23 Sinusitis is an infection of the lining of the sinus cavities in your head. Sinusitis often follows a cold. It causes pain and pressure in your head and face. In most cases, sinusitis gets better on its own in 1 to 2 weeks. But some mild symptoms may last for several weeks. Sometimes antibiotics are needed. if you are having problems. It's also a good idea to know your test results and keep a list of the medicines you take. How can you care for yourself at home? Take an seas-nxa-sandjxd pain medicine. Avoid Ibuprofen, Aleve and Aspirin if . If the doctor prescribed antibiotics, take them as directed. Do not stop taking them just because you feel better. You need to take the full course of antibiotics. Be careful when taking rgqm-tgy-osriepb cold or influenza (flu) medicines and Tylenol at the same time. Many of these medicines have acetaminophen, which is Tylenol. Read the labels to make sure that you are not taking more than the recommended dose. Too much acetaminophen (Tylenol) can be harmful. Breathe warm, moist air from a steamy shower, a hot bath, or a sink filled with hot water. Avoid cold, dry air. Using a humidifier in your home may help. Follow the directions for cleaning the machine. Use saline (saltwater) nasal washes. This can help keep your nasal passages open and wash out mucus and bacteria. You can buy saline nose drops at a grocery store or drugstore. Or you can make your own at home by adding 1 teaspoon (5 millilitres) of salt and 1 teaspoon (5 millilitres) of baking soda to 2 cups (500 mL) of distilled water. If you make your own, fill a bulb syringe with the solution, insert the tip into your nostril, and squeeze gently. Blow your nose. Put a hot, wet towel or a warm gel pack on your face 3 or 4 times a day for 5 to 10 minutes each time. Try a decongestant nasal spray like oxymetazoline (Drixoral). Do not use it for more than 3 days in a row. Using it for more than 3 days can make your congestion worse. Not available 11/07/2022 11:24:17 Reason for Referral None Reported. Problems Name Problem SNOMED Code Status Onset Date Resolution Date Notes Provider Name and Address Organization Details Recorded Time Atrial fibrillation 20053875 Active 2022 JAKE Pugh [facility] 10:59:51 Problem Notes None recorded. Procedures Surgical History Date Name Laterality Status Provider Name and Address Organization Details Recorded Time procedure on eye completed LJ Alva[facility] 11/07/2022 11:00:34 total knee replacement completed LJ Durán [facility] 11/07/2022 11:03:46 Imaging Results None recorded. Procedure Notes None recorded. Medical Equipment None Reported. Allergies No known drug allergies Medications Name Sig Start Date Stop Date Status Note LastModified by Organization Details LastModified Time latanoprost 0.005 % eye drops INSTILL 1 DROP IN BOTH EYES EVERY NIGHT AT BEDTIME active Not Available Not Available No t Available Augmentin 875 mg-125 mg tablet Take 1 tablet every 12 hours by oral route with meals for 10 days. 2022 active Not Available Not Available Not Avai labdipak atorvastati n 10 mg tablet TAKE 1 TABLET BY MOUTH DAILY active Not Available Not Available No t Available prednisone 20 mg tablet Take 2 tablets every day by oral route in the morning for 3 days. 2022 active Not Available Not Available Not Avai lable flecainide 100 mg tablet TAKE 1 TABLET BY MOUTH EVERY 12 HOURS active Not Available Not Available No t Available furosemide 20 mg tablet TAKE 1 TABLET BY MOUTH DAILY NEEDED FOR SWELLING 11/07 completed Not Available Not Available Not Available metoprolol succinate ER 25 mg tablet,exte nded release 24 hr TAKE 1 TABLET BY MOUTH DAILY active Not Available Not Available No t Available timolol maleate 0.5 % eye drops INSTILL 1 DROP INTO LEFT EYE TWICE DAILY active Not Available Not Available No t Available Xarelto 20 mg tablet TAKE 1 TABLET BY MOUTH DAILY active Not Available Not Available No t Available Allergy Relief (fluticason e) 50 mcg/actuati on nasal spray,suspe nsion [place] 1 spray every day by intranasa l route as directed for 30 days. 2022 active Not Available Not Available Not Avvenu rodriguez Vitals Date Recorded Body height Provider Name an d Address Organization Details Last Updated DateTime 11/07/2022 165.1 cm LJ ANTONIO PA - [facility] 11/07/2022 11:00:44 Date Recorded Body mass index (BMI) Body weight Provider Name and Address Organization Details Last Updated DateTime 11/07/2022 23.3 kg/m2 92962.93 g LJ ANTONIO [facility] - [facility] 11/07/2022 11:00:52 Date Recorded Heart rate Provider Name an d Address Organization Details Last Updated DateTime 11/07/2022 54 /min LJ ANTONIO PA - [facility] 11/07/2022 11:02:29 Date Recorded Respiratory rate Provider Name a nd Address Organization Details Last Updated DateTime 11/07/2022 18 /min LJ ANTONIO PA - [facility] 11/07/2022 11:02:30 Date Recorded Body temperature Provider Name a nd Address Organization Details Last Updated DateTime 11/07/2022 97.8 [degF] LJ ANTONIO PA - [facility] 11/07/2022 11:02:33 Date Recorded Oxygen saturation Oxygen saturation in Arterial blood by Pulse oximetry Provider Name and Address Organization Details Last Updated DateTime 11/07/2022 98 % 98 % LJ Perez [facility] 11/07/2022 11:02:46 Date Recorded Systolic blood pressure Diastolic blood pressure Provider Name and Address Organization Details Last Updated DateTime 11/07/2022 160 mm[Hg] 71 mm[Hg] LJ Perez [facility] 11/07/2022 11:02:53 Social History Question Answer Notes LastModified by Organizat ion Details LastModified Time Tobacco Smoking Status Never Smoker JAKE Pugh [facility] 11/07/2022 11:00:21 What Is Your Level Of Alcohol Consumption? Occasional Information not available 11/07/2022 Are You Currently Employed? No Information not available 11/07/2022 Have You Had Direct Contact, Or Contact During Intimacy, With Monkeypox Rash, Scabs, Or Body Fluids From A Person With Monkeypox? No Information not available 11/07/2022 Do You Use Any Illicit Or Recreational Drugs? No Information not available 11/07/2022 Have You Recently Traveled Abroad? No Information not available 11/07/2022 Are You Currently In School? No Information not available 11/07/2022 Sex: Unknown Functional Status None recorded. Mental Status None recorded. Family History Relationship Description Onset Age of this Age Resolved Age Notes LastModified by Organization Details LastModified Time Father No current problems or disability Not available 12/2022 11:00:10 Mother No current problems or disability Not available 12/2022 11:00:10 Medical History No medical history recorded. Gynecological History Statement/Question Response Is there any chance of ? No Obstetrics History GPAL:G 0 P 0 0 0 0 Immunizations Vaccine Type Date Status Note Provider Nam e and Address Organization Details Recorded Time Influenza, split virus, quadrivalent, preservative 4 completed JAKE Pugh [facility] 11/07/2022 10:58:36 Influenza, adjuvanted, trivalent, PF 9 completed LJ ANTONIO null, PA - [facility] 11/07/2022 10:58:36 Influenza, high-dose, quadrivalent, PF 0 completed LJ ANTONIO null, PA - [facility] 11/07/2022 10:58:36 Influenza, adjuvanted, quadrivalent, PF 2 completed LJ ANTONIO null, PA - [facility] 11/07/2022 10:58:36 Influenza, adjuvanted, quadrivalent, PF 1 completed LJ ANTONIO null, PA - [facility] 11/07/2022 10:58:36 COVID-19, mRNA, LNP-S, PF, 30 mcg/0.3 mL dose 1 completed LJ ANTONIO null, PA - [facility] 11/07/2022 10:58:36 COVID-19, mRNA, LNP-S, PF, 30 mcg/0.3 mL dose 1 completed LJ ANTONIO null, PA - [facility] 11/07/2022 10:58:36 COVID-19, mRNA, LNP-S, PF, 30 mcg/0.3 mL dose 1 completed LJ ANTONIO null, PA - [facility] 11/07/2022 10:58:36 COVID-19, mRNA, LNP-S, bivalent, PF, 30 mcg/0.3 mL dose 2 completed LJ ANTONIO null, PA - [facility] 11/07/2022 10:58:36 pneumococcal polysaccharide PPV23 4 completed LJ ANTONIO null, PA - [facility] 11/07/2022 10:58:36 Influenza, split virus, trivalent, PF 7 completed LJ ANTONIO null, PA - [facility] 11/07/2022 10:58:36 Past Encounters Encounter ID Performer Location Encounter Start Date Encounter Closed Date Diagnosis/Indication Diagnosis SNOMED-CT Code Diagnosis ICD10 Code Diagnosis Note [id number] [address] [facility] [place] [address] 07/05/2020 10:57:18 07/05/2020 12:06:39 [id number] [address] [facility] [place] [address] 01/01/2020 15:48:18 01/01/2020 17:15:26 [id number] [address] [facility] [place] [address] 11/09/2018 08:08:08 11/09/2018 08:26:53 [id number] [address] [facility] [address] 12/18/2019 08:07:26 12/18/2019 08:36:34 [id number] [address] [facility] [place] [address] 03/31/2018 10:36:10 03/31/2018 12:42:30 [id number] [address] [facility] [address] 11/17/2015 08:09:44 11/17/2015 08:48:08 [id number] [address] [facility] [address] 10/20/2021 08:13:24 10/20/2021 08:52:51 [id number] Eagle Navarro NP [address] [facility] [place] [address] 11/07/2022 10:18:38 11/07/2022 11:27:37 Acute left otitis media [id number] H66.92 Health Concerns Section Related Observation LastModified by Organization Detai ls LastModified Time None Recorded Concern Status LastModified by Organization Details LastModified Time None Recorded Advance Directives Directive None Recorded Payers Encounter Date Sequence Insurance Name Policy Number Policy Jain Covered Member ID Jain Member ID Guarantor Name 10/20/2021 1 [facility] (MEDICARE REPLACEMENT/A DVANTAGE - PPO) [id number] Mylene Zuniga [id number] Mylene Morgan Efrain 11/07/2022 1 [facility] (MEDICARE REPLACEMENT/A DVANTAGE - PPO) [id number] Mylene Morgan Efrain [id number] Mylene Morgan Efrain 11/07/2022 2 [place] [facility] Mylene Morgan Efrain [id number] Mylene Morgan Efrain Notes Date Note Type Note Provider Name and Address Organization Details Recorded Time 11/07/2022 text/html Ear Pain Brief HPIReported bypatient.Location :pain radiates to neck; left Onset/Timing:new onset; started 2days ago; gradual onset Duration:occurs daily Quality:no itching; no discharge from the ears; no burning;aching pain;sharp pain Severity:getting worse; no fever; able to perform daily activities; moderate pain;interferes with ability to sleep Context:no recent trauma; no recent ear infection; no recent swimming; no immunocompromise; no dental problems; no recent airplane travel; no scuba diving; non-smoker;recent URI Alleviating factors:nasal steroid spray Aggravating factors:sinus infections; allergies Associated Symptoms:no jaw popping or clicking; No decreased appetite; no discharge from ear; no hearing loss; no sore throat; no dental pain; no jaw pain; no tinnitus;Cough;chhaya al congestion;nasal discharge;sense of fullness/pressure; no decreased hearing; no muffled hearing Eagle Navarro NP [address] [place], [address], [place] - [facility] 11/07/2022 11:24:42 OBGyn Episode No OBEpisode recorded.
== END 2024-05-30 11:07 | disposition home or self-care (01) ==
PROVIDERS: PCP Physician Assistant; Visit Provider Internal Medicine Cardiovascular Disease
DX: I50.30 Unspecified diastolic (congestive) heart failure (principal); I48.0 Paroxysmal atrial fibrillation
CPT/HCPCS: 93010; 99214; G2211

== ENCOUNTER → 2024-05-30 10:31 | Outpatient (BNVA) | payer MEDICARE, MEDICAID, SELFPAY | PROVIDERS: PCP Physician Assistant; Visit Provider Internal Medicine Cardiovascular Disease | DX: I48.0 Paroxysmal atrial fibrillation (principal); I50.30 Unspecified diastolic (congestive) heart failure; R94.31 Abnormal electrocardiogram [ECG] [EKG] | CPT/HCPCS: 93005; 99212 ==

== ENCOUNTER 2024-06-02 10:45 | Outpatient (REF) | payer MEDICARE, MEDICAID, SELFPAY ==
--- OUTSIDE RECORDS SUMMARY | 2024-06-02 11:30 | XMS_ITS | Data Portability ---
Author Organization JAKE Champion s, [address] Address [address] [place] [address] Assessment No assessment recorded. Plan of Treatment Reminders Order Date Submit Date Provider Last Modified By Organization Details Last Modified Time Details Appointments None recorded. Lab None recorded. Referral None recorded. Procedures None recorded. Surgeries None recorded. Imaging None recorded. Medication Orders Augmentin 875 mg-125 mg tablet 2022 023 [facility]54675, [address] [place], [place], [id number], 3 11:24:32 Allergy Relief (fluticason e) 50 mcg/actuati on nasal spray,suspe nsion 2022 023 [facility] #45882, [address], [place], [phone], 3 11:24:32 prednisone 20 mg tablet 2022 023 [facility] #11342, [address] [place], [place], [phone], 3 11:24:33 Patient TargetsNo targets recorded. Patient Instructions Encounter Date Encounter Id Patient Instructions Last Modified By Organization Details Last Modified Time 11/07/2022 [id number] earache: care instructions [email or web address] Not available 11/07/2022 [...] taking a prescription pain medicine, take an lvle-ohl-sjithez medicine, such as acetaminophen (Tylenol), ibuprofen (Advil, [...] care for yourself at home? Take an lrxj-yag-mkrwqfk pain medicine. Avoid Ibuprofen, Aleve and Aspirin if . If the doctor prescribed antibiotics, take them as directed. Do not stop taking them just because you feel better. You need to take the full course of antibiotics. Be careful when taking jkgb-dls-oyvancu cold or influenza (flu) medicines and Tylenol [...] Address Organization Details Recorded Time Atrial fibrillation 87235688 Active 2022 JAKE Pugh [facility] 10:59:51 Problem Notes None recorded. Procedures Surgical [...] Not Available Not Available Not Avai lable atorvastati n 10 mg tablet TAKE 1 [...] e) 50 mcg/actuati on nasal spray,suspe nsion [place] 1 spray every day by intranasa l route as directed for 30 days. 2022 active Not Available Not Available Not Avai lable Vitals Date Recorded Body height Body mass index (BMI) Body weight Heart rate Respiratory rate Body temperature Oxygen saturation Oxygen saturation in Arterial blood by Pulse oximetry Systolic blood pressure Diastolic blood pressure Provider Name and Address Organization Details Last Updated DateTime 165.1 cm 23.3 kg/m2 17290.9 3 g 54 /min 18 /min 97.8 [degF] 98 % 98 % 160 mm[Hg] 71 mm[Hg] LJ Perez [facility] 11:02:53 Social History Question Answer Notes LastModified by Platforaat ion Details LastModified Time Tobacco Smoking Status Never Smoker JAKE Pugh [facility] 11/07/2022 11:00:21 What Is Your Level Of [...] Influenza, split virus, quadrivalent, preservative 4 completed LJ ANTONIO null, PA - [facility] 11/07/2022 10:58:36 Influenza, adjuvanted, trivalent, PF [...] SNOMED-CT Code Diagnosis ICD10 Code Diagnosis Note [id number] [address] [place] [address] 07/05/2020 10:57:18 07/05/2020 12:06:39 [id number] [address] [place] [address] 01/01/2020 15:48:18 01/01/2020 17:15:26 [id number] [address] [place] [address] 11/09/2018 08:08:08 11/09/2018 08:26:53 [id number] [address] [place] [address] 12/18/2019 08:07:26 12/18/2019 08:36:34 [id number] [address] [place] [address] 03/31/2018 10:36:10 03/31/2018 12:42:30 [id number] [address] [place] [address] 11/17/2015 08:09:44 11/17/2015 08:48:08 [id number] [address] [place] [address] 10/20/2021 08:13:24 10/20/2021 08:52:51 [id number] Eagle Navarro NP [address] [place] [address] 11/07/2022 10:18:38 11/07/2022 11:27:37 Acute left otitis media [id number] H66.92 Health Concerns Section Related Observation LastModified by Organization Detai ls LastModified Time None Recorded Concern Status LastModified by Organization Details LastModified Time None Recorded Advance Directives Directive None Recorded Payers Encounter Date Sequence Insurance Name Policy Number Policy Jain Covered Member ID Jain Member ID Guarantor Name 10/20/2021 1 [facility] (MEDICARE REPLACEMENT/A DVANTAGE - PPO) [id number] Mylene Zuniga [id number] Mylene Zuniga 11/07/2022 1 [facility] (MEDICARE REPLACEMENT/A DVANTAGE - PPO) [id number] Mylene Zuniga [id number] Mylene Zuniga 11/07/2022 2 [place] [facility] Mylene Zuniga [id number] Mylene Zuniga Notes Date Note Type Note Provider Name [...] no muffled hearing Eagle Navarro NP [address] [place], [address], [place] - [facility] 11/07/2022 11:24:42 OBGyn Episode No OBEpisode recorded.
[2024-06-02 13:52] LABS: Hematocrit 40.1 % (37.0-47.0); Mean Corpuscular HGB Conc 32.4 g/dl (31.0-35.0); Mean Corpuscular Hemoglobin 30.4 pg (27.0-33.0); Mean Corpuscular Volume 93.7 fL (80.0-98.0); Mean Platelet Volume 10.9 fL (9.4-12.3); Platelet Count 194 X10*3/uL (160-400); Red Blood Count 4.28 X10*6/uL (4.20-5.50); Red Cell Distribution Width 13.9 % (11.0-16.0); White Blood Count 5.4 X10*3/uL (4.8-10.8)
[2024-06-02 14:17] LABS: Anion Gap 13 (12-20); Blood Urea Nitrogen 19 mg/dL (9-16); Calcium 9.9 mg/dL (8.4-10.2); Carbon Dioxide 27 mmol/L (22-29); Chloride 105 mmol/L (96-108); Estimated Glomerular Filt Rate > 60; Glucose Random 82 mg/dL (60-115); Potassium 4.6 mmol/L (3.3-5.1); Sodium 140 mmol/L (135-145)
== END 2024-06-02 10:46 | disposition home or self-care (01) ==
LOC: HO.HMGCLDS 10:45
PROVIDERS: Visit Provider Internal Medicine Cardiovascular Disease
DX: I50.30 Unspecified diastolic (congestive) heart failure (principal)
CPT/HCPCS: 36415; 80048; 85027

== ENCOUNTER → 2024-07-31 10:54 | Outpatient (REF) | payer MEDICARE, SELFPAY ==
--- OUTSIDE RECORDS SUMMARY | 2024-07-31 12:20 | XMS_ITS | Data Portability ---
Author Organization JAKE Champion s, [address] Address [address] [place] [address] Assessment No assessment recorded. Plan of Treatment Reminders Order Date Submit Date Provider Last Modified By Organization Details Last Modified Time Details Appointments None recorded. Lab None recorded. Referral None recorded. Procedures None recorded. Surgeries None recorded. Imaging None recorded. Medication Orders Augmentin 875 mg-125 mg tablet [address] [facility]43298, [address] [place], [place], [phone], 3 11:24:32 Allergy Relief (fluticason e) 50 mcg/actuati on nasal spray,suspe nsion [address] [facility] #20514, [address] [place], [place], [id number], 3 11:24:32 prednisone 20 mg tablet [address] [facility] #18901, [address] [place], [place], [id number], 3 11:24:33 Patient TargetsNo targets recorded. Patient Instructions Encounter Date Encounter Id Patient Instructions Last Modified By Organization Details Last Modified Time 11/07/2022 [id number] earache: care instructions [email or web address] Not available 11/07/2022 [...] taking a prescription pain medicine, take an jngf-smq-ddlmlga medicine, such as acetaminophen (Tylenol), ibuprofen (Advil, [...] care for yourself at home? Take an iwds-eij-iaywlwo pain medicine. Avoid Ibuprofen, Aleve and Aspirin if . If the doctor prescribed antibiotics, take them as directed. Do not stop taking them just because you feel better. You need to take the full course of antibiotics. Be careful when taking xyqm-zef-jpjuofp cold or influenza (flu) medicines and Tylenol [...] Address Organization Details Recorded Time Atrial fibrillation 11459812 Active 2022 JAKE Pugh [facility] 10:59:51 Problem Notes None recorded. Procedures Surgical [...] e) 50 mcg/actuati on nasal spray,suspe nsion [place] 1 spray every day by intranasa l [...] Last Updated DateTime 165.1 cm 23.3 kg/m2 83514.9 3 g 54 /min 18 /min 97.8 [degF] 98 % 98 % 160 mm[Hg] 71 mm[Hg] LJ Perez [facility] 11:02:53 Social History Question Answer Notes LastModified by Ecalat ion Details LastModified Time Tobacco Smoking Status [...] SNOMED-CT Code Diagnosis ICD10 Code Diagnosis Note [id number] [address] [place] [address] 07/05/2020 10:57:18 07/05/2020 12:06:39 [id number] [address] [place] [address] 01/01/2020 15:48:18 01/01/2020 17:15:26 [id number] [address] [place] [address] 11/09/2018 08:08:08 11/09/2018 08:26:53 [id number] [address] [place] [address] 12/18/2019 08:07:26 12/18/2019 08:36:34 [id number] [address] [place] [address] 03/31/2018 10:36:10 03/31/2018 12:42:30 [id number] [address] [place] [address] 11/17/2015 08:09:44 11/17/2015 08:48:08 [id number] [address] [place] [address] 10/20/2021 08:13:24 10/20/2021 08:52:51 [id number] Eagle Navarro NP [address] [place] [address] 11/07/2022 10:18:38 11/07/2022 11:27:37 Acute left otitis media 433042038 H66.92 Health Concerns Section Related Observation LastModified by Organization Detai ls LastModified Time None Recorded Concern Status LastModified by Organization Details LastModified Time None Recorded Advance Directives Directive None Recorded Payers Encounter Date Sequence Insurance Name Policy Number Policy Jain Covered Member ID Jain Member ID Guarantor Name 10/20/[address] [facility] (MEDICARE REPLACEMENT/A DVANTAGE - PPO) [id number] Mylene Zuniga [id number] Mylene Zuniga 11/07/[address] [facility] (MEDICARE REPLACEMENT/A DVANTAGE - PPO) [id number] Mylene Zuniga [id number] Mylene Zuniga 11/07/2022 2 [place] [facility] Mylene Zuniga [id number] Mylene Zuniga Notes Date Note Type Note [...] Navarro NP [address] [place], [address], [place] - [facility] 11/07/2022 11:24:42 OBGyn Episode No OBEpisode recorded.
== END ==
LOC: HO.CARD 10:54
PROVIDERS: PCP Physician Assistant; Visit Provider Internal Medicine Cardiovascular Disease
DX: I48.0 Paroxysmal atrial fibrillation (principal)
CPT/HCPCS: 93225

== ENCOUNTER → 2024-08-08 15:20 | Outpatient (BNVA) | payer MEDICARE, SELFPAY | PROVIDERS: PCP Physician Assistant; Visit Provider Internal Medicine Cardiovascular Disease | DX: Z13.89 Encounter for screening for other disorder (principal) ==

== ENCOUNTER 2024-08-28 08:56 | Outpatient (AMB) | payer MEDICARE, SELFPAY ==
[2024-08-28 09:07] VITALS: BP 120/76; PULSE 50; BMI 22.4
--- NOTE | 2024-08-28 09:07 | MHC.OFFVIS ---
Vital Signs 08/28/24 09:07 Height 5 ft 5 in Weight 134 lb 7.712 oz BMI 22.4 BP 120/76 Blood Pressure Location Lt brachial Position Sitting Pulse 50 Intake Visit Reasons: 6 wk f/up Intake Note: 6 week follow-up with ekg had to go back to regular flecainide dose Poultice Machine Operator Required: No Manager Energy: Manager Energy Present Accompanied by: Son Allergies adhesive [ADHESIVE] Allergy (Intermediate, Verified 05/25/22 10:46) RASH latex [LATEX] Allergy (Intermediate, Verified 05/25/22 10:46) RASH/ITCH Sulfa (Sulfonamide Antibiotics) [SULFA (SULFONAMIDE ANTIBIOTICS)] Allergy (Mild, Verified 05/25/22 10:46) INCREASED WBC AND NAUSEA amiodarone [AMIODARONE] Allergy (Unknown, Verified 05/25/22 10:46) NODULES IN LUNGS, Lung toxicity latex Allergy (Unknown, Uncoded 05/25/22 10:46) Rash Latex Gloves Allergy (Unknown, Uncoded 05/25/22 10:46) Rash Sulfacet-R Allergy (Unknown, Uncoded 05/25/22 10:46) elevates white blood cell count and nausea Medication List - Last Reconciled 08/28/24 by Raleigh Velazquez MD atorvastatin 10 mg PO DAILY benzonatate 200 mg PO TID PRN flecainide 100 mg PO Q12H furosemide 20 mg PO ONCE PRN metoprolol succinate ER 25 mg PO DAILY netarsudil-latanoprost 0.02-0.005 % 1 drp ophthalmic (eye) DAILY rivaroxaban (Xarelto) 20 mg PO DAILY timolol maleate 0.5% 1 drp ophthalmic (eye) BID HPI Comments Details: Mylene comes for follow-up. She is currently doing well on lower dose of flecainide with improved symptoms of dizziness which appears to be side effect of the higher flecainide dose she noted. However she also was dizzy when she was in atrial fibrillation. This is difficult to discern. She was also on higher dose of metoprolol at this point time. She says the flecainide made her heart rate on the slower side. We did reduce metoprolol but now she is back on her usual dose at 25 mg daily. She feels fine. She remains active. Denies any heart failure symptoms. She denies any bleeding issues or neurologic events. PFSH Medical History (HFpEF) heart failure with preserved ejection fraction HTN (hypertension) Paroxysmal atrial fibrillation Varicose veins of left lower extremity with inflammation Varicose veins of right lower extremity with inflammation Congestive heart failure (CHF) Atrial fibrillation Hypercholesteremia Surgical History Hx of cataract extraction History of nasal surgery Hx of knee surgery Family History Father Family history of sudden cardiac in father Mother Family history of sudden cardiac in father Family history of sudden cardiac in mother Son No problems noted. Social History (Reviewed 08/28/24 @ 09: by Raleigh Velazquez MD) Housing: House Patient Tobacco Use Status: Former Tobacco user e-Cigarette/Vaping Use: Never Used Current occupational status: retired Cognitive needs: No Hearing needs: No Vision needs: No Review of Systems Const Denies chills, Denies fatigue, Denies fever(s), Denies frequent falls, Denies weakness, Denies weight gain and Denies weight loss ENT Denies dizziness Card Denies chest pain, Denies leg edema, Denies lightheadedness, Denies palpitations, Denies dyspnea, Denies dyspnea on exertion, Denies orthopnea and Denies other (loss of consciousness) Resp Denies cough, Denies dyspnea and Denies dyspnea on exertion GI Denies hematochezia and Denies change in stool character Musc Denies abnormal gait, Denies muscle weakness, Denies numbness, Denies radiating pain into limb and Denies tingling Neuro Denies abnormal gait, Denies dizziness, Denies frequent falls, Denies numbness, Denies tingling and Denies weakness Endo Denies fatigue and Denies palpitations Physical Exam Vital Signs: Last Vital Signs Pulse 50 08/28/24 09:07 BP 120/76 08/28/24 09:07 BMI result Body Mass Index 22.4 Const General: cooperative, comfortable, no acute distress, alert and awake Nutritional Appearance: thin Orientation/consciousness: patient oriented x3 Limitations: no limitations Neck Neck: Yes trachea midline, Yes supple and Yes no JVD Resp Effort & Inspection: normal respiratory effort Auscultation: clear to auscultation bilaterally Cardio Jugular venous distension: no JVD Palpation: normal PMI Rate: regular rate Rhythm: regular rhythm Heart sounds: S1 normal heart sound present and S2 normal heart sound present GI Auscultation: normal bowel sounds Skin General skin exam: no rashes or lesions noted and ecchymosis Neuro General: patient oriented x3 and no focal motor deficits Extrem General: Yes no clubbing, cyanosis or edema, Yes venous stasis dermatitis and Yes other (Bilateral varicose veins, right greater than left) Psych Appearance: grossly normal Office Procedures EKG Details: EKG shows sinus bradycardia first-degree AV block with poor R-wave progression most likely lead placement 80027-Irrutwfevwcmeuukd, Complete Assessment & Plan Assessment & Plan (1) Paroxysmal atrial fibrillation: Code(s): I48.0 - Paroxysmal atrial fibrillation Category: Medical Plan: Highly symptomatic paroxysmal atrial fibrillation has now remained suppressed on lower dose of flecainide. Will continue the same. She was tolerating this low-dose of flecainide well. However she was recurrent atrial fibrillation will need to switch her antiarrhythmic drug therapy and this was discussed with her. Continue concomitant metoprolol therapy. Continue full oral anticoagulation, currently on Xarelto due to insurance issues. Tolerating well. Quarterly renal function test should be pursued. (2) (HFpEF) heart failure with preserved ejection fraction: Code(s): I50.30 - Unspecified diastolic (congestive) heart failure Category: Medical Plan: Heart failure preserved ejection fraction especially setting of persistent atrial fibrillation. Clinically euvolemic and well compensated in sinus rhythm. Using Lasix as need be. Continue the same. Continue rhythm control approach. Maintain activity level as tolerated. No change in therapy. Daily weight monitoring avoidance salt loading was discussed. She understands and agrees. (3) Sinus bradycardia: Code(s): R00.1 - Bradycardia, unspecified Category: Medical Plan: Sinus bradycardia overall suggestive of sinoatrial chantal dysfunction. Clinically no symptoms related to it. No indication for pacing at this point therapy. Discussed with her in the future if her antiarrhythmic drug therapy need to change may require pacing therapy. She understands disease. Will follow up in the clinic in 3 months time, sooner p.r.n.. Thank you for allowing me to partake in her care Medications: Changed From metoprolol succinate ER 12.5 mg (1/2 x 25 mg) PO DAILY 45 tabs 3RF To metoprolol succinate ER 25 mg PO DAILY From flecainide 150 mg PO Q12H 60 tabs 2RF To flecainide 100 mg PO Q12H Coding Level of Care Code Est Pt Level 4 (86652) Complex EM visit Add On G2211 Diagnoses Paroxysmal atrial fibrillation I48.0 (HFpEF) heart failure with preserved ejection fraction I50.30 Sinus bradycardia R00.1 CPT Codes EKG - CPT: 22980-Sewjzcpkfovlqkxdc, Complete ([id number])
--- OUTSIDE RECORDS SUMMARY | 2024-08-28 09:40 | XMS_ITS | Data Portability ---
Author Organization [facility], [address] Address [address] [place] [address] Assessment No assessment recorded. Plan of Treatment Reminders Order Date Submit Date Provider Last Modified By Organization Details Last Modified Time Details Appointments None recorded. Lab None recorded. Referral None recorded. Procedures None recorded. Surgeries None recorded. Imaging None recorded. Medication Orders Augmentin 875 mg-125 mg tablet 2022 023 [id number], [address], [place], [phone], 3 11:24:32 Allergy Relief (fluticason e) 50 mcg/actuati on nasal spray,suspe nsion 2022 023 [facility] #59377, [address], [place], [phone], 3 11:24:32 prednisone 20 mg tablet 2022 023 [facility] #[id number], [address], [place], [phone], 3 11:24:33 Patient TargetsNo targets recorded. Patient Instructions Encounter Date Encounter Id Patient Instructions Last Modified By Organization Details Last Modified Time 11/07/2022 [id number] earache: care instructions [email or web address] Not available 11/07/2022 [...] taking a prescription pain medicine, take an hygc-mgf-dzbbogt medicine, such as acetaminophen (Tylenol), ibuprofen (Advil, [...] care for yourself at home? Take an gtde-tzz-qaaaflx pain medicine. Avoid Ibuprofen, Aleve and Aspirin if . If the doctor prescribed antibiotics, take them as directed. Do not stop taking them just because you feel better. You need to take the full course of antibiotics. Be careful when taking yfiz-fdl-qoemfjq cold or influenza (flu) medicines and Tylenol [...] Address Organization Details Recorded Time Atrial fibrillation 60886673 Active 2022 JAKE Pugh [facility] 10:59:51 Problem Notes None recorded. Procedures Surgical [...] e) 50 mcg/actuati on nasal spray,suspe nsion [place] 1 spray every day by intranasa l [...] Last Updated DateTime 165.1 cm 23.3 kg/m2 01758.9 3 g 54 /min 18 /min 97.8 [degF] 98 % 98 % 160 mm[Hg] 71 mm[Hg] LJ Perez [facility] 11:02:53 Social History Question Answer Notes LastModified by Magazinoat ion Details LastModified Time Tobacco Smoking Status [...] SNOMED-CT Code Diagnosis ICD10 Code Diagnosis Note [id number] [address] [place] [address] 07/05/2020 10:57:18 07/05/2020 12:06:39 [id number] [address] [place] [address] 01/01/2020 15:48:18 01/01/2020 17:15:26 [id number] [address] [place] [address] 11/09/2018 08:08:08 11/09/2018 08:26:53 [id number] [address] [place] [address] 12/18/2019 08:07:26 12/18/2019 08:36:34 [id number] [address] [place] [address] 03/31/2018 10:36:10 03/31/2018 12:42:30 [id number] [address] [place] [address] 11/17/2015 08:09:44 11/17/2015 08:48:08 [id number] [address] [place] [address] 10/20/2021 08:13:24 10/20/2021 08:52:51 [id number] Eagle Navarro NP [address] [place] [address] 11/07/2022 10:18:38 11/07/2022 11:27:37 Acute left otitis media [id number] H66.92 Health Concerns Section Related Observation LastModified by Organization Detai ls LastModified Time None Recorded Concern Status LastModified by Organization Details LastModified Time None Recorded Advance Directives Directive None Recorded Payers Encounter Date Sequence Insurance Name Policy Number Policy Jain Covered Member ID Jain Member ID Guarantor Name 10/20/2021 1 [facility] (MEDICARE REPLACEMENT/A DVANTAGE - PPO) [id number] Mylene Zuniga [id number] Mylene Zuniga 11/07/2022 1 [facility] (MEDICARE REPLACEMENT/A DVANTAGE - PPO) [id number] Mylene Zuniga [id number] Mylene Zuniga 11/07/2022 2 [place] [facility] Mylene Zuniga [id number] Mylene Zuniga Notes Date Note Type Note [...] Navarro NP [address] [place], [address], [place] - [facility] 11/07/2022 11:24:42 OBGyn Episode No OBEpisode recorded.
== END 2024-08-28 09:27 | disposition home or self-care (01) ==
LOC: HO.HCS 08:57
PROVIDERS: PCP Physician Assistant; Visit Provider Internal Medicine Cardiovascular Disease
DX: I48.0 Paroxysmal atrial fibrillation (principal); I50.30 Unspecified diastolic (congestive) heart failure; R00.1 Bradycardia, unspecified
CPT/HCPCS: 93010; 99214; G2211

== ENCOUNTER → 2024-08-28 08:56 | Outpatient (BNVA) | payer MEDICARE, SELFPAY | PROVIDERS: PCP Physician Assistant; Visit Provider Internal Medicine Cardiovascular Disease | DX: I48.0 Paroxysmal atrial fibrillation (principal); I50.30 Unspecified diastolic (congestive) heart failure; R00.1 Bradycardia, unspecified | CPT/HCPCS: 93005; 99212 ==

== ENCOUNTER → 2024-11-13 10:52 | Outpatient (REF) | payer MEDICARE, SELFPAY ==
--- NOTE | 2024-11-13 10:55 | HM_ITS ---
Conclusion: 1. Patient was monitored for total period of 2 days and 23 hours 2. Baseline was normal sinus rhythm with average heart of 54 beats per minute 3. Frequent sinus bradycardia noted with 77% of time heart rate below 60 beats per minute without significant pauses 4. Occasional PACs noted without any runs of atrial fibrillation 5. No patient reported events MTDD
--- OUTSIDE RECORDS SUMMARY | 2024-11-13 11:50 | XMS_ITS | Data Portability ---
Author Organization JAKE Champion [facility], [address] Address [address] [place] [address] Assessment No assessment recorded. Plan of Treatment Reminders Order Date Submit Date Provider Last Modified By Organization Details Last Modified Time Details Appointments None recorded. Lab None recorded. Referral None recorded. Procedures None recorded. Surgeries None recorded. Imaging None recorded. Medication Orders Augmentin 875 mg-125 mg tablet 2022 023 [facility][id number], [address] [place], [place], [phone], 3 11:24:32 Allergy Relief (fluticason e) 50 mcg/actuati on nasal spray,suspe nsion 2022 023 [facility] #[id number], [address] [place], [place], [phone], 3 11:24:32 prednisone 20 mg tablet 2022 023 [facility] #[id number], [address] [place], [place], [phone], 3 11:24:33 Patient TargetsNo targets recorded. Patient Instructions Encounter Date Encounter Id Patient Instructions Last Modified By Organization Details Last Modified Time 11/07/2022 [id number] earache: care instructions Not available 11/07/2022 11:24:25 ear infection (otitis [...] taking a prescription pain medicine, take an ezzw-nmj-mqubpjt medicine, such as acetaminophen (Tylenol), ibuprofen (Advil, [...] care for yourself at home? Take an lbsx-moa-savtues pain medicine. Avoid Ibuprofen, Aleve and Aspirin if . If the doctor prescribed antibiotics, take them as directed. Do not stop taking them just because you feel better. You need to take the full course of antibiotics. Be careful when taking apwo-ysg-rokqdum cold or influenza (flu) medicines and Tylenol [...] Address Organization Details Recorded Time Atrial fibrillation [id number] Active 2022 JAKE Pugh [facility] 10:59:51 Problem Notes None recorded. Procedures Surgical History Date Name Laterality Status Provider Name and Address Organization Details Recorded Time procedure on eye completed JL Perez [facility] 11/07/2022 11:00:34 total knee replacement completed LJ JOSEPH - [employer] [facility] 11/07/2022 11:03:46 Imaging Results None recorded. Procedure [...] e) 50 mcg/actuati on nasal spray,suspe nsion [place] 1 spray every day by intranasa l route as directed for 30 days. 2022 active Not Available Not Available Not Avai lable Vitals Date Recorded Body height Body mass index (BMI) Body weight Heart rate Respiratory rate Body temperature Oxygen saturation Oxygen saturation in Arterial blood by Pulse oximetry Systolic And Diastolic Provider Name and Address Organization Details Last Updated DateTime 3 165.1 cm 23.3 kg/m2 81222.9 3 g 54 /min 18 /min 97.8 [degF] 98 % 98 % 160/71 mm[Hg] LJ Perez [facility] 3 11:02:53 Social History Question Answer Notes LastModified by Organizat ion Details LastModified Time Tobacco Smoking Status Never Smoker JAKE Pugh [facility] 11/07/2022 11:00:21 Have You Had Direct Contact, Or Contact During Intimacy, With Monkeypox Rash, Scabs, Or Body Fluids From A Person With Monkeypox? No Information not available 11/07/2022 Have You Recently Traveled Abroad? No Information not available 11/07/2022 Are You Currently In School? No Information not available 11/07/2022 Sex: Unknown Functional Status Question Answer Note LastModified by Organizat ion Details LastModified Time Do you use any illicit or recreational drugs? No Information not available 11/07/2022 What is your level of alcohol consumption? Occasional Information not available 11/07/2022 Are you currently employed? No Information not available 11/07/2022 Mental Status None recorded. Family History Relationship [...] SNOMED-CT Code Diagnosis ICD10 Code Diagnosis Note [id number] [address] [place] [address] 07/05/2020 10:57:18 07/05/2020 12:06:39 [id number] [address] [place] [address] 01/01/2020 15:48:18 01/01/2020 17:15:26 [id number] [address] [place] [address] 11/09/2018 08:08:08 11/09/2018 08:26:53 [id number] [address] [place] [address] 12/18/2019 08:07:26 12/18/2019 08:36:34 [id number] [address] [place] [address] 03/31/2018 10:36:10 03/31/2018 12:42:30 [id number] [address] [place] [address] 11/17/2015 08:09:44 11/17/2015 08:48:08 [id number] [address] [place] [address] 10/20/2021 08:13:24 10/20/2021 08:52:51 [id number] Eagle Navarro NP [address] [place] [address] 11/07/2022 10:18:38 11/07/2022 11:27:37 Acute left otitis media [id number] H66.92 Health Concerns Section Related Observation LastModified by Organization Detai ls LastModified Time None Recorded Concern Status LastModified by Organization Details LastModified Time None Recorded Advance Directives Directive None Recorded Payers Insurance Date Sequence Insurance Name Policy Number Policy Jain Covered Member ID Jain Member ID Guarantor Name 11/07/2022 1 [facility] (MEDICARE REPLACEMENT/A DVANTAGE - PPO) [id number] Mylene Zuniga [id number] Mylene Zuniga 11/07/2022 2 [place] [facility] Mylene Zuniga [id number] Mylene Zuniga Notes Date Note Type Note [...] Navarro NP [address] [place], [address], [place] - [facility] 11/07/2022 11:24:42 OBGyn Episode No OBEpisode recorded.
== END ==
LOC: HO.CARD 10:52
PROVIDERS: Visit Provider Internal Medicine Cardiovascular Disease
DX: R00.1 Bradycardia, unspecified (principal)
CPT/HCPCS: 93242

== ENCOUNTER → 2024-11-13 10:55 | Outpatient (BNV) | payer MEDICARE, SELFPAY | PROVIDERS: Visit Provider Internal Medicine Cardiovascular Disease | DX: I49.1 Atrial premature depolarization (principal) | CPT/HCPCS: 93244 ==

== ENCOUNTER 2024-11-28 12:33 | Outpatient (AMB) | payer MEDICARE, MEDICAID, SELFPAY ==
[2024-11-28 12:42] VITALS: BP 120/72; PULSE 50; BMI 23.1
--- NOTE | 2024-11-28 12:42 | A.OFFVIS_ITS ---
Vital Signs 11/28/24 12:42 Height 5 ft 5 in Weight 138 lb 14.259 oz BMI 23.1 BP 120/72 Blood Pressure Location Lt brachial Position Sitting Pulse 50 Intake Visit Reasons: 6m follow up Intake Note: 6 month follow-up with ekg went back to 25mg tab of metoprolol will need new rx Jack Spooler Tender Required: No Allergies adhesive (ADHESIVE) Allergy (Intermediate, Verified 05/25/22 10:46) RASH latex (LATEX) Allergy (Intermediate, Verified 05/25/22 10:46) RASH/ITCH Sulfa (Sulfonamide Antibiotics) (SULFA (SULFONAMIDE ANTIBIOTICS)) Allergy (Mild, Verified 05/25/22 10:46) INCREASED WBC AND NAUSEA amiodarone (AMIODARONE) Allergy (Unknown, Verified 05/25/22 10:46) NODULES IN LUNGS, Lung toxicity latex Allergy (Unknown, Uncoded 05/25/22 10:46) Rash Latex Gloves Allergy (Unknown, Uncoded 05/25/22 10:46) Rash Sulfacet-R Allergy (Unknown, Uncoded 05/25/22 10:46) elevates white blood cell count and nausea Medication List - Last Reconciled 11/28/24 by Raleigh Velazquez MD atorvastatin 10 mg PO DAILY flecainide 100 mg PO Q12H furosemide 20 mg PO ONCE PRN metoprolol succinate ER 25 mg PO DAILY netarsudil-latanoprost 0.02-0.005 % 1 drp ophthalmic (eye) DAILY rivaroxaban (Xarelto) 20 mg PO DAILY timolol maleate 0.5% 1 drp ophthalmic (eye) BID HPI Comments Details: Mylene comes for follow-up. She underwent a Holter monitor which showed predominantly sinus bradycardia with average heart of 54 beats per minute without profound bradycardia or significant pauses. She has not had any recurrent episodes of atrial fibrillation. She is taking all her medications. She does get lightheaded when she walks for long period of time in hot weather and/or when she gets up quickly at nighttime. No syncopal episodes. No o rthopnea, PND, leg edema. 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 Social History Housing: House Patient Tobacco Use Status: Former Tobacco user e-Cigarette/Vaping Use: Never Used Current occupational status: retired Cognitive needs: No Hearing needs: No Vision needs: No Review of Systems Const Denies chills, Denies fatigue, Denies fever(s), Denies frequent falls, Denies weakness, Denies weight gain and Denies weight loss ENT Denies dizziness Card Denies chest pain, Denies leg edema, Denies lightheadedness, Denies palpitations, Denies dyspnea, Denies dyspnea on exertion, Denies orthopnea and Denies other (loss of consciousness) Resp Denies cough, Denies dyspnea and Denies dyspnea on exertion GI Denies hematochezia and Denies change in stool character Musc Denies abnormal gait, Denies muscle weakness, Denies numbness, Denies radiating pain into limb and Denies tingling Neuro Denies abnormal gait, Denies dizziness, Denies frequent falls, Denies numbness, Denies tingling and Denies weakness Endo Denies fatigue and Denies palpitations Physical Exam Vital Signs: Last Vital Signs Pulse 50 11/28/24 12:42 BP 120/72 11/28/24 12:42 BMI result Body Mass Index 23.1 Const General: cooperative, comfortable, no acute distress, alert and awake Nutritional Appearance: thin Orientation/consciousness: patient oriented x3 Limitations: no limitations Neck Neck: Yes trachea midline, Yes supple and Yes no JVD Resp Effort & Inspection: normal respiratory effort Auscultation: clear to auscultation bilaterally Cardio Jugular venous distension: no JVD Palpation: normal PMI Rate: regular rate Rhythm: regular rhythm Heart sounds: S1 normal heart sound present and S2 normal heart sound present Peripheral pulses: dorsalis pedis present (Reduced) GI Auscultation: normal bowel sounds Skin General skin exam: no rashes or lesions noted and ecchymosis Neuro General: patient oriented x3 and no focal motor deficits Extrem General: Yes no clubbing, cyanosis or edema, Yes venous stasis dermatitis and Yes other (Bilateral varicose veins, right greater than left) Psych Appearance: grossly normal Office Procedures EKG Details: EKG shows sinus bradycardia at 50 beats per minute with poor R-wave progression with normal QRS duration 66907-Pcoozkuoyjkvxmucx, Complete Assessment & Plan Assessment & Plan (1) (HFpEF) heart failure with preserved ejection fraction: Code(s): I50.30 - Unspecified diastolic (congestive) heart failure Category: Medical Plan: Heart failure preserved ejection fraction, clinically euvolemic well compensated. Currently on diuretic Lasix as need be. Has benefitted significantly from rhythm control approach will continue pursue rhythm control approach. Blood pressure is well optimized advised daily weight monitoring avoidance salt loading. Advised to maintain activity level as tolerated. Continue aggressive management of her pulmonary disease as well. (2) Paroxysmal atrial fibrillation: Code(s): I48.0 - Paroxysmal atrial fibrillation Category: Medical Plan: Paroxysmal atrial fibrillation which has done well with rhythm control approach. Currently on flecainide dose and maintaining rhythm well. No recurrent episodes. Continue concomitant metoprolol therapy. Currently on full oral anticoagulation with Xarelto. Advised to call me with worsening symptoms. (3) Sinus bradycardia: Code(s): R00.1 - Bradycardia, unspecified Category: Medical Plan: Sinus bradycardia but without any symptoms suggestive of sinoatrial chantal dysfunction, exacerbated by metoprolol therapy. She is currently not having any symptoms and pacing therapy is not indicated. Will continue monitor clinically. Advised to call me with any worsening symptoms. (4) Orthostatic lightheadedness: Code(s): R42 - Dizziness and giddiness Plan: Orthostatic lightheadedness probably from relative hypovolemia and autonomic dysfunction of advanced age. Advised to maintain adequate hydration. Orthostatic precautions were discussed. She understands management well. Will follow up in the clinic in clinic in 6 months time, sooner p.r.n.. Thank you for allowing me to partake in her care Coding Level of Care Code Est Pt Level 4 (44127) Complex EM visit Add On G2211 Diagnoses (HFpEF) heart failure with preserved ejection fraction I50.30 Paroxysmal atrial fibrillation I48.0 Sinus bradycardia R00.1 Orthostatic lightheadedness R42 CPT Codes EKG - CPT: 08338-Bvuoihvdawetnlmnt, Complete ([id number])
--- OUTSIDE RECORDS SUMMARY | 2024-11-28 13:19 | XMS_ITS | Data Portability ---
Author Organization JAKE Champion s, [address] Address [address] [place] [address] Assessment No assessment recorded. Plan of Treatment Reminders Order Date Submit Date Provider Last Modified By Organization Details Last Modified Time Details Appointments None recorded. Lab None recorded. Referral None recorded. Procedures None recorded. Surgeries None recorded. Imaging None recorded. Medication Orders Augmentin 875 mg-125 mg tablet 2022 023 [facility] [employer] [facility] #[id number], [address] [place], [place], [phone], 3 11:24:32 Allergy Relief (fluticason e) 50 mcg/actuati on nasal spray,suspe nsion 2022 023 [facility] [employer] [facility] #[id number], [address], [place], [phone], 3 11:24:32 prednisone 20 mg tablet 2022 023 [facility] [employer] #[id number], [address], [place], [id number], 3 11:24:33 Patient TargetsNo targets recorded. Patient Instructions Encounter Date Encounter Id Patient Instructions Last Modified By Organization Details Last Modified Time 11/07/2022 [id number] earache: care instructions Not available 11/07/2022 11:24:25 [...] taking a prescription pain medicine, take an gcdm-jpz-umclkdz medicine, such as acetaminophen (Tylenol), ibuprofen (Advil, [...] care for yourself at home? Take an seaq-oyw-fflunww pain medicine. Avoid Ibuprofen, Aleve and Aspirin if . If the doctor prescribed antibiotics, take them as directed. Do not stop taking them just because you feel better. You need to take the full course of antibiotics. Be careful when taking mgbi-dqa-csfkpke cold or influenza (flu) medicines and Tylenol [...] Address Organization Details Recorded Time Atrial fibrillation 76679409 Active 2022 JAKE Pugh [employer] 10:59:51 Problem Notes None recorded. Procedures Surgical History Date Name Laterality Status Provider Name and Address Organization Details Recorded Time procedure on eye completed LJ Perez [employer] 11/07/2022 11:00:34 total knee replacement completed LJ JOSEPH - [employer] 11/07/2022 11:03:46 Imaging Results None recorded. Procedure [...] e) 50 mcg/actuati on nasal spray,suspe nsion [place] 1 spray every day by intranasa l [...] Updated DateTime 3 165.1 cm 23.3 kg/m2 23269.9 3 g 54 /min 18 /min 97.8 [degF] 98 % 98 % 160/71 mm[Hg] LJ Perez [employer] 3 11:02:53 Social History Question Answer [...] SNOMED-CT Code Diagnosis ICD10 Code Diagnosis Note [id number] [address] [place] [address] 07/05/2020 10:57:18 07/05/2020 12:06:39 [id number] [address] [place] [address] 01/01/2020 15:48:18 01/01/2020 17:15:26 [id number] [address] [place] [address] 11/09/2018 08:08:08 11/09/2018 08:26:53 [id number] [address] [place] [address] 12/18/2019 08:07:26 12/18/2019 08:36:34 [id number] [address] [place] [address] 03/31/2018 10:36:10 03/31/2018 12:42:30 [id number] [address] [place] [address] 11/17/2015 08:09:44 11/17/2015 08:48:08 [id number] [address] [place] [address] 10/20/2021 08:13:24 10/20/2021 08:52:51 [id number] Eagle Navarro NP [address] [place] [address] 11/07/2022 10:18:38 11/07/2022 11:27:37 Acute left otitis media [id number] H66.92 Health Concerns Section Related Observation LastModified by Organization Detai ls LastModified Time None Recorded Concern Status LastModified by Organization Details LastModified Time None Recorded Advance Directives Directive None Recorded Payers Insurance Date Sequence Insurance Name Policy Number Policy Jain Covered Member ID Jain Member ID Guarantor Name 11/07/2022 1 [facility] (MEDICARE REPLACEMENT/A DVANTAGE - PPO) [id number] Mylene Zuniga [id number] Mylene Zuniga 11/07/2022 2 [place] [facility] Mylene Zuniga [id number] Myleen Zuniga OBGyn Episode No OBEpisode recorded.
== END 2024-11-28 13:08 | disposition home or self-care (01) ==
PROVIDERS: PCP Physician Assistant; Visit Provider Internal Medicine Cardiovascular Disease
DX: I50.30 Unspecified diastolic (congestive) heart failure (principal); I48.0 Paroxysmal atrial fibrillation; R00.1 Bradycardia, unspecified; R42 Dizziness and giddiness
CPT/HCPCS: 93010; 99214; G2211

== ENCOUNTER → 2024-11-28 12:33 | Outpatient (BNVA) | payer MEDICARE, OTHER, SELFPAY | PROVIDERS: PCP Physician Assistant; Visit Provider Internal Medicine Cardiovascular Disease | DX: I50.30 Unspecified diastolic (congestive) heart failure (principal); I48.0 Paroxysmal atrial fibrillation; R00.1 Bradycardia, unspecified; R42 Dizziness and giddiness; Z79.899 Other long term (current) drug therapy; Z79.01 Long term (current) use of anticoagulants | CPT/HCPCS: 93005; 99212 ==

== ENCOUNTER 2025-04-09 11:39 | Outpatient (AMB) | payer MEDICARE, SELFPAY ==
[2025-04-09 12:30] VITALS: BP 140/72; PULSE 56; TEMP 36.6; O2SAT 95; BMI 23.1
--- NOTE | 2025-04-09 12:30 | MHC.OFFWIV ---
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 pt reports sore throat has resolved Patient Tobacco Use Status: Former Tobacco user Allergies adhesive (ADHESIVE) Allergy (Intermediate, Verified 04/09/25 12:35) RASH latex (LATEX) Allergy (Intermediate, Verified 04/09/25 12:35) RASH/ITCH Sulfa (Sulfonamide Antibiotics) (SULFA (SULFONAMIDE ANTIBIOTICS)) Allergy (Mild, Verified 04/09/25 12:35) INCREASED WBC AND NAUSEA amiodarone (AMIODARONE) Allergy (Unknown, Verified 04/09/25 12:35) NODULES IN LUNGS, Lung toxicity latex Allergy (Unknown, Uncoded 04/09/25 12:35) Rash Latex Gloves Allergy (Unknown, Uncoded 04/09/25 12:35) Rash Sulfacet-R Allergy (Unknown, Uncoded 04/09/25 12:35) elevates white blood cell count and nausea Medication List - Last Reconciled 04/09/25 by Deepti Dominguez NP atorvastatin 10 mg PO DAILY flecainide 100 mg PO Q12H furosemide 20 mg PO ONCE PRN metoprolol succinate ER 25 mg PO DAILY netarsudil-latanoprost 0.02-0.005 % 1 drp ophthalmic (eye) DAILY rivaroxaban (Xarelto) 20 mg PO DAILY timolol maleate 0.5% 1 drp ophthalmic (eye) BID Do you need a note to return to daycare/school/sports/work: No HPI HPI Comments History of Present Illness Details 89-year-old female presents with productive cough for 3 days. Reports throat pain and bilateral ear discomfort. Denies fever but endorses body chills. No recent sick contacts. No reports of chest pain, shortness of breath, nausea, vomiting, or other systemic symptoms. 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 Social History Housing: House Patient Tobacco Use Status: Former Tobacco user e-Cigarette/Vaping Use: Never Used Current occupational status: retired Cognitive needs: No Hearing needs: No Vision needs: No Review of Systems Const All systems reviewed & are unremarkable except as noted in HPI and below Physical Exam Vital Signs: Last Vital Signs Temp 97.8 F 04/09/25 12:30 Pulse 56 04/09/25 12:30 BP 140/72 H 04/09/25 12:30 Pulse Ox 95 04/09/25 12:30 Oxygen Delivery Method Room Air 04/09/25 12:30 BMI result Body Mass Index 23.1 Const General: no acute distress Nutritional Appearance: well nourished Orientation/consciousness: patient oriented x3 HEENT Head: Yes normocephalic Ears: external ears normal and TM abnormal with fluid behind the TM bilateral General nose exam: Normal external nose present Face and sinus: Yes sinuses nontender Mouth: moist mucous membranes Throat: Yes uvula midline Resp Effort & Inspection: normal respiratory effort Auscultation: no crackles, no rales, no rhonchi and wheezes scattered wheezes Cardio Heart sounds: S1 normal heart sound present and S2 normal heart sound present Neuro General: patient oriented x3, gait normal and moves all extremities Psych Speech and movement: Normal speech and movement present Assessment & Plan Assessment & Plan (1) Cough: Code(s): R05.9 - Cough, unspecified Plan: Ordered Chest Xray. Ordered SARs. Ordered Zpack. Hydration, and Rest Warm saltwater gargles. Orders: Orders XR chest 2V Today R05.9 - Cough, unspecified SARS-CoV2/FLU/RSV Today R05.9 - Cough, unspecified Medications: New benzonatate 100 mg PO BID 60 caps 0RF R05.9 - Cough, unspecified azithromycin 500 mg PO DAILY 3 tabs 0RF 3 days R05.9 - Cough, unspecified Coding Level of Care Code New Pt Level 4 (31118) Diagnoses Cough R05.9 Time Spent (min) 20
== END 2025-04-09 13:12 | disposition home or self-care (01) ==
PROVIDERS: PCP Physician Assistant; Visit Provider Nurse Practitioner Family
DX: R05.9 Cough, unspecified (principal)

== ENCOUNTER → 2025-04-09 13:05 | Outpatient (BNV) | payer MEDICARE, SELFPAY | PROVIDERS: PCP Physician Assistant; Visit Provider Radiology Diagnostic Radiology | DX: R05.9 Cough, unspecified (principal) | CPT/HCPCS: 71046 ==

== ENCOUNTER 2025-04-09 13:51 | Outpatient (REF) | payer MEDICARE, SELFPAY ==
[2025-04-09 17:21] LABS: Resp Syncy Virus RNA Qual PCR NEGATIVE (Negative); SARS COV2 PCR INHOUSE NEGATIVE (Negative)
--- OUTSIDE RECORDS SUMMARY | 2025-04-09 22:37 | XMS_ITS | Data Portability ---
Author Organization JAKE Champion s, [address] Address [address] [place] [address] Assessment No assessment recorded. Plan of Treatment Reminders Order Date Submit Date Provider Last Modified By Organization Details Last Modified Time Details Appointments None recorded. Lab None recorded. Referral None recorded. Procedures None recorded. Surgeries None recorded. Imaging None recorded. Medication Orders Augmentin 875 mg-125 mg tablet 2022 023 [facility] [employer] [facility] #[id number], [address], [place], [phone], 3 11:24:32 Allergy Relief (fluticason e) 50 mcg/actuati on nasal spray,suspe nsion 2022 023 [facility] [employer] [facility] #51151, [address], [place], [phone], 3 11:24:32 prednisone 20 mg tablet 2022 023 [facility] [employer] #03710, [address], [place], [phone], 3 11:24:33 Patient TargetsNo targets recorded. Patient Instructions Encounter Date Encounter Id Patient Instructions Last Modified By Organization Details Last Modified Time 11/07/2022 [id number] earache: care instructions Not available 11/07/2022 11:24:25 [...] taking a prescription pain medicine, take an nijy-wkt-tlufhdm medicine, such as acetaminophen (Tylenol), ibuprofen (Advil, [...] care for yourself at home? Take an jhhh-xwm-smwezwy pain medicine. Avoid Ibuprofen, Aleve and Aspirin if . If the doctor prescribed antibiotics, take them as directed. Do not stop taking them just because you feel better. You need to take the full course of antibiotics. Be careful when taking dvec-axc-ddfyuxi cold or influenza (flu) medicines and Tylenol [...] Address Organization Details Recorded Time Atrial fibrillation 68882147 Active 2022 JAKE Pugh [employer] 10:59:51 Problem Notes None recorded. Procedures Surgical History Date Name Laterality Status Provider Name and Address Organization Details Recorded Time procedure on eye completed LJ Perez [facility] 11/07/2022 11:00:34 total knee replacement completed LJ JOSEPH - [employer] 11/07/2022 11:03:46 Imaging Results None recorded. Procedure [...] e) 50 mcg/actuati on nasal spray,suspe nsion [place] 1 spray every day by intranasa l route as directed for 30 days. 2022 active Not Available Not Available Not Avai lable Vitals Date Recorded Body height Body mass index (BMI) Body weight Heart rate Respiratory rate Body temperature Oxygen saturation Systolic And Diastolic Provider Name and Address Organization Details Last Updated DateTime 3 165.1 cm 23.3 kg/m2 10691.9 3 g 54 /min 18 /min 97.8 [degF] 98 % 160/71 mm[Hg] LJ Perez [employer] [facility] 3 11:02:53 Social History Question Answer Notes LastModified by Organizat ion Details LastModified Time Tobacco Smoking Status Never Smoker LJ ANTONIO null, JAKE Perez [employer] [facility] 11/07/2022 11:00:21 Have You Had Direct [...] Diagnosis SNOMED-CT Code Diagnosis ICD10 Code Diagnosis IMO Codes Diagnosis Note [id number] [address] [place] [address] 07/05/2020 10:57:18 07/05/2020 12:06:39 [id number] [address] [place] [address] 01/01/2020 15:48:18 01/01/2020 17:15:26 [id number] [address] [place] [address] 11/09/2018 08:08:08 11/09/2018 08:26:53 [id number] [address] [place] [address] 12/18/2019 08:07:26 12/18/2019 08:36:34 [id number] [address] [facility] [place] [address] 03/31/2018 10:36:10 03/31/2018 12:42:30 [id number] [address] [place] [address] 11/17/2015 08:09:44 11/17/2015 08:48:08 [id number] [address] [place] [address] 10/20/2021 08:13:24 10/20/2021 08:52:51 [id number] Eagle Navarro NP [address] [place] [address] 11/07/2022 10:18:38 11/07/2022 11:27:37 Acute left otitis media 462037364 H66.92 Health Concerns Section Related Observation LastModified by Organization Detai ls LastModified Time None Recorded Concern Status LastModified by Organization Details LastModified Time None Recorded Advance Directives Directive None Recorded Payers Insurance Date Sequence Insurance Name Policy Number Policy Jain Covered Member ID Jain Member ID Guarantor Name 11/07/2022 1 [facility] (MEDICARE REPLACEMENT/A DVANTAGE - PPO) [id number] Mylene Zuniga [id number] Mylene Zuniga 11/07/2022 2 [place]: [facility] Mylene Zuniga [id number] Mylene Zuniga Notes Date Note Type Note Provider Name and Address Organization Details Recorded Time 11/07/2022 text/html Ear Pain Brief HPIReported by PatientHPIFor location, patient reportspain radiates to neckbut reportsleft. For quality, patient reportsaching painandsharp painbut reportsno itching,no discharge from the ears, andno burning. For severity, patient reportsinterferes with ability to sleepbut reportsno fever,able to perform daily activities,getting worse, andmoderate pain. For context, patient reportsrecent uribut reportsno recent trauma,no recent ear infection,no recent swimming,no immunocompromise,no dental problems,no recent airplane travel,no scuba diving, andnon-smoker. For associated symptoms, patient reportscough,nasal congestion,nasal discharge, andsense of fullness/pressurebut reportsno jaw popping or clicking,no decreased appetite,no discharge from ear,no hearing loss,no sore throat,no dental pain,no jaw pain,no tinnitus,no decreased hearing, andno muffled hearing. For onset/timing, patient reportsnew onset,started 2days ago, andgradual onset. For duration, patient reportsoccurs daily. For alleviating factors, patient reportsnasal steroid spray. For aggravating factors, patient reportssinus infectionsandallergies . Eagle Navarro NP [address] [place], [address], [place] - [facility] 11/07/2022 11:24:42 OBGyn Episode No OBEpisode recorded.
== END 2025-04-09 13:52 | disposition home or self-care (01) ==
LOC: HO.LAB 13:51
PROVIDERS: Visit Provider Nurse Practitioner Family
DX: R05.9 Cough, unspecified (principal)
CPT/HCPCS: 71046; 87637; 99202